=== PATIENT | female | born 1935 | race Caucasian/White ===

== ENCOUNTER 2023-01-31 19:10 | Observation (INO) ==
[2023-01-31 21:41] LABS: Alanine Aminotransferase 14 U/L (7-52); Albumin Globulin Ratio 1.6 (0.9-2); Albumin Level 4.9 gm/dl (3.4-5.0); Alkaline Phosphatase 87 U/L (34-104); Anion Gap 9 (3-11); Aspartate Aminotransferase 25 U/L (13-39); BUN Creatinine Ratio 16.8 (10-20); Bilirubin,Total 0.5 mg/dl (0.2-1.0); Blood Urea Nitrogen 19 mg/dl (6-23); Calcium 9.7 mg/dl (8.6-10.3); Carbon Dioxide 22 mmol/L (21-32); Chloride 101 mmol/L (98-107); Est GFR (African American) 51.3 ml/min; Est GFR (Non-African American) 44.3 ml/min; Glucose 124 mg/dl (70-99(Fasting)); Potassium 4.5 mmol/L (3.5-5.1); Sodium 132 mmol/L (136-145); Total Protein 7.9 gm/dl (6.0-8.3)
[2023-01-31 21:43] LABS: Hematocrit (blood only) 33.6 % (37.0-47.0); Hemoglobin 11.2 g/dl (12.0-16.0); Mean Corpuscular Hemoglobin 24.6 pg (25.0-34.0); Mean Corpuscular Hgb Conc 33.3 g/dL (32.0-36.0); Mean Corpuscular Volume 73.7 fL (80.0-100.0); Nucleated RBC # (auto) 0.06 K/uL (0.00-0.12); Nucleated RBC % (auto) 0.1 %; Platelet Count 332 K/uL (130-400); RDW Coefficient of Variation 18.5 % (11.5-14.5); RDW Standard Deviation 48.5 fL (36.4-46.3); Red Blood Count 4.56 M/uL (4.20-5.40); White Blood Count 40.49 K/ul (4.8-10.8)
[2023-01-31 21:56] LABS: INR 1.1 (0.9-1.1); Partial Thromboplastin Time 26.8 Seconds (21.0-31.0); Prothrombin Time 11.6 Seconds (9.0-12.0)
[2023-01-31 21:57] LABS: ALC (manual) 2.02 K/uL (1.2-3.4); ANC (manual) 30.37 K/uL (1.4-6.5); Basophils # (manual) 1.21 K/uL (0-0.2); Basophils % (manual) 3 %; Eosinophils # (manual) 2.02 K/uL (0-0.50); Eosinophils % (manual) 5 %; Hypersegmented Neutrophils 1+; Lymphocytes # (manual) 2.02 K/uL (1.2-3.4); Lymphocytes % (manual) 5 %; Monocytes # (manual) 1.62 K/uL (0.11-0.59); Monocytes % (manual) 4 %; Myelocytes # (manual) 3.24 K/uL (0-0); Myelocytes % (manual) 8 %; Neutrophils # (manual) 30.37 K/uL (1.40-6.50); Neutrophils % (manual) 75 %; Poikilocytosis Present; Polychromasia 1+
[2023-01-31 23:15] LABS: Appearance Urine Clear (Clear); Bacteria Urine Automated Negative (Negative); Bilirubin Urine Negative (Negative); Blood Urine Negative (Negative); Cast Urine Automated 0 /lpf (0-5); Color Urine Yellow; Epithelial Cell Urine Auto 0-5 /lpf (0-5); Glucose Urine UA Negative (Negative); Ketones Urine Negative (Negative); Leukocyte Esterase Urine Trace (Negative); Nitrite Urine Negative (Negative); Protein Urine Negative (Negative); RBC Urine Automated 0-4 /hpf (0-4); Specific Gravity Urine 1.013 (1.000-1.030); Urobilinogen Urine Negative (Negative); pH Urine 5.5 (4.5-7.5)
--- NOTE | 2023-02-01 02:00 | History & Physical Report ---
Date of Service February 01, 2023 Assessment & Plan (1) Dizziness: Plan: 87-year-old female with past med history significant for type 2 diabetes, hypothyroidism, dyslipidemia, diabetes with neurological manifestations, paroxysmal atrial fibrillation, hypertension, paroxysmal supraventricular tachycardia, history of nonischemic cardiomyopathy, history of varicose veins of legs with complication, chronic stomach ulcers, chronic kidney disease stage III, polymyalgia rheumatica, history of angioedema, statin intolerance, general anxiety disorder, non-ST load NM, who lives alone in senior apartments presents with ongoing dizziness and imbalance for last 2 weeks and progressively getting worse. Dizziness and imbalance We will follow CT head And CTA head and neck PT OT when stable If any concerns will consult neurology Leukocytosis WBC 40 K No obvious signs of infection We will consult heme-onc for further recommendations Follow repeat labs Diabetes Hold metformin Insulin sliding scale We will follow blood sugars and HbA1c levels Paroxysmal atrial fibrillation On aspirin and beta-dallin Not on anticoag secondary fall risk History of CAD On aspirin beta-dallin Hypertension On amlodipine, Atenolol, and losartan We will monitor Hypothyroidism Synthyroid Follow TSH levels CKD stage III Presented creatinine 1.1 We will follow labs DVT prophylaxis Lovenox Disposition Med/telemetry Full code History of Present Illness Chief Complaint: Dizziness and imbalance Primary Care Provider: Ayan Trinh MD 87-year-old female with past med history significant for type 2 diabetes, hypothyroidism, dyslipidemia, diabetes with neurological manifestations, paroxysmal atrial fibrillation, hypertension, paroxysmal supraventricular tachycardia, history of nonischemic cardiomyopathy, history of varicose veins of legs with complication, chronic stomach ulcers, chronic kidney disease stage III, polymyalgia rheumatica, history of angioedema, statin intolerance, general anxiety disorder, non-ST load NM, who lives alone in senior apartments presents with ongoing dizziness and imbalance for last 2 weeks and progressively getting worse. Patient is somewhat hard of hearing. Son is in the room who is helping with H&P. Patient denies any headaches. No blurred visions. No earaches. Has some runny nose. No sore throat. No cough. No difficulty swallowing. No fevers. No chest pain or shortness of breath. Has some dry heaves. No abdominal pain. Normal bowel and bladder movements. Currently resting comfortably and hemodynamically stable. Past medical history. As mentioned above Past surgical history. Bilateral carpal tunnel surgery. Colonoscopy. Cataract surgery. Tonsillectomy. Cholecystectomy. Total hysterectomy. Social history. Former smoker. Smoked 2.5 packs a day for 22 years. No alcohol use. No drug use. Family history. Father had renal cancer. Mother had breast cancer. Aunt had breast cancer. Allergies Allergy/AdvReac Type Severity Reaction Status Date / Time ibuprofen Allergy Intermediate tongue Verified 02/01/23 02:16 swelling latex Allergy Intermediate rash Verified 02/01/23 02:16 lisinopril Allergy Mild HIVES Verified 02/01/23 02:16 metoprolol Allergy Mild HIVES Verified 02/01/23 02:16 Penicillins Allergy Mild HIVES Verified 02/01/23 02:16 Sulfa (Sulfonamide Allergy Mild NAUSEA AND Verified 02/01/23 02:16 Antibiotics) VOMITING Home Medications Medication Instructions Recorded Confirmed Type amlodipine 5 mg tablet 5 mg PO DAILY 12/21/17 02/01/23 History aspirin 81 mg tablet,delayed 81 mg PO DAILY 12/21/17 02/01/23 History release (Rakesh Low Dose Aspirin) levothyroxine 75 mcg tablet 75 mcg PO DAILYBB 12/21/17 02/01/23 History lorazepam 0.5 mg tablet 0.5 mg PO TID 12/21/17 02/01/23 History losartan 25 mg tablet 25 mg PO DAILY 12/21/17 02/01/23 History metformin 500 mg tablet 500 mg PO BIDM 12/21/17 02/01/23 History atenolol 25 mg tablet 25 mg PO DAILY 01/06/18 02/01/23 History biotin 2,500 mcg capsule 2,500 mcg PO DAILY 01/06/18 02/01/23 History cholecalciferol (vitamin D3) 25 2,000 unit PO DAILY 01/06/18 02/01/23 History mcg (1,000 unit) tablet coenzyme Q10 50 mg capsule 50 mg PO DAILY 01/06/18 02/01/23 History cetirizine 10 mg tablet (Zyrtec) 5 mg PO DAILY 03/05/21 02/01/23 History fluticasone propionate 50 2 spray intranasal DAILY PRN 03/05/21 02/01/23 History mcg/actuation nasal Congestion spray,suspension pantoprazole 40 mg tablet,delayed 40 mg PO DAILY PRN Acid Reflux 03/05/21 02/01/23 History release acetaminophen 650 mg 1,300 mg PO DAILY PRN Pain 02/01/23 02/01/23 History tablet,extended release (Tylenol Arthritis Pain) 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) Vitamin D deficiency (11/11/11) Surgical History History of cardiac cath History of cholecystectomy History of total hip arthroplasty left History of total knee replacement right Family History Other No pertinent family history Social History Smoking Status: Never smoker Hx Alcohol Use: No Hx Substance Use: No Communication Ability: Effective Visual Impairment: No Limitations Hearing Ability: Normal 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 Head- atraumatic Eyes- PERRL. ENT- oropharynx clear Neck- supple, no JVD. Lungs- clear to auscultation no wheezing or crackles. Heart- regular rhythm; no murmur, no gallop. Abdomen- normal bowel sounds, soft, nontender, no distension. Extremities- no pretibial edema, no erythema seen. Neuro- alert, oriented x 3; PERRL, EOMI; no facial palsy; no dysarthria; motor 5/5 bilaterally;coordination of movements normal. No pronator drift. sensations intact. position sense intact. Skin- warm & dry Results & Data Results & Data Vital Signs (Past 12 Hours) Vital Signs Temp Pulse Pulse Resp BP BP Pulse Ox 02/01/23 00:35 66 19 195/76 H 97 01/31/23 23:05 66 19 97 01/31/23 23:05 01/31/23 19:28 36.6 C 65 18 160/79 H 98 O2 Del Method 02/01/23 00:35 01/31/23 23:05 01/31/23 23:05 Room Air 01/31/23 19:28 Room Air Diagnostic Findings Laboratory Results WBC 40.49 K/ul (4.8-10.8) H* 01/31/23 21:03 RBC 4.56 M/uL (4.20-5.40) 01/31/23 21:03 Hgb 11.2 g/dl (12.0-16.0) L 01/31/23 21:03 Hct 33.6 % (37.0-47.0) L 01/31/23 21:03 MCV 73.7 fL (80.0-100.0) L 01/31/23 21:03 MCH 24.6 pg (25.0-34.0) L 01/31/23 21:03 MCHC 33.3 g/dL (32.0-36.0) 01/31/23 21:03 RDW Std Deviation 48.5 fL (36.4-46.3) H 01/31/23 21:03 RDW Coeff of Nadia 18.5 % (11.5-14.5) H 01/31/23 21:03 Plt Count 332 K/uL (130-400) 01/31/23 21:03 Absolute Nucleated RBC 0.06 K/uL (0.00-0.12) 01/31/23 21:03 Nucleated RBC % (auto) 0.1 % 01/31/23 21:03 Neutrophils % (Manual) 75 % 01/31/23 21:03 Lymphocytes % (Manual) 5 % 01/31/23 21:03 Monocytes % (Manual) 4 % 01/31/23 21:03 Eosinophils % (Manual) 5 % 01/31/23 21:03 Basophils % (Manual) 3 % 01/31/23 21:03 Myelocytes % (Man) 8 % 01/31/23 21:03 Neutrophils # (Manual) 30.37 K/uL (1.40-6.50) H 01/31/23 21:03 Total Absolute Neuts 30.37 K/uL (1.4-6.5) H 10/26/23 21:03 Lymphocytes # (Manual) 2.02 K/uL (1.2-3.4) 01/31/23 21:03 Total Abs Lymphocytes 2.02 K/uL (1.2-3.4) 01/31/23 21:03 Monocytes # (Manual) 1.62 K/uL (0.11-0.59) H 01/31/23 21:03 Eosinophils # (Manual) 2.02 K/uL (0-0.50) H 01/31/23 21:03 Basophils # (Manual) 1.21 K/uL (0-0.2) H 01/31/23 21:03 Myelocytes # (Manual) 3.24 K/uL (0-0) H 01/31/23 21:03 Hypersegmented Neuts 1+ 01/31/23 21:03 Polychromasia 1+ 01/31/23 21:03 Poikilocytosis Present 01/31/23 21: PT 11.6 Seconds (9.0-12.0) 01/31/23 21:03 INR 1.1 (0.9-1.1) 01/31/23 21:03 APTT 26.8 Seconds (21.0-31.0) 01/31/23 21:03 PTT Ratio 1.0 01/31/23 21:03 Sodium 132 mmol/L (136-145) L 01/31/23 21: Potassium 4.5 mmol/L (3.5-5.1) 01/31/23 21: Chloride 101 mmol/L (98-107) 01/31/23 21:03 Carbon Dioxide 22 mmol/L (21-32) 01/31/23 21:03 Anion Gap 9 (3-11) 01/31/23 21:03 BUN 19 mg/dl (6-23) 01/31/23 21:03 Creatinine 1.13 mg/dl (0.6-1.2) 01/31/23 21:03 Est Cr Clr Drug Dosing Not Reportable 01/31/23 21:03 Est GFR ( Amer) 51.3 ml/min 01/31/23 21:03 Est GFR (Non-Af Amer) 44.3 ml/min 01/31/23 21:03 BUN/Creatinine Ratio 16.8 (10-20) 01/31/23 21:03 Glucose 124 mg/dl (70-99(Fasting)) H 01/31/23 21:03 Calcium 9.7 mg/dl (8.6-10.3) 01/31/23 21:03 Total Bilirubin 0.5 mg/dl (0.2-1.0) 01/31/23 21:03 AST 25 U/L (13-39) 01/31/23 21:03 ALT 14 U/L (7-52) 01/31/23 21:03 Alkaline Phosphatase 87 U/L (34-104) 01/31/23 21:03 Total Protein 7.9 gm/dl (6.0-8.3) 01/31/23 21:03 Albumin 4.9 gm/dl (3.4-5.0) 01/31/23 21:03 Globulin 3.0 gm/dl (2.5-4.0) 01/31/23 21:03 Albumin/Globulin Ratio 1.6 (0.9-2) 01/31/23 21:03 Urine Color Yellow 01/31/23 22:54 Urine Appearance Clear (Clear) 01/31/23 22:54 Urine pH 5.5 (4.5-7.5) 01/31/23 22:54 Ur Specific [place] 1.013 (1.000-1.030) 01/31/23 22:54 Urine Protein Negative (Negative) 01/31/23 22:54 Urine Glucose (UA) Negative (Negative) 01/31/23 22:54 Urine Ketones Negative (Negative) 01/31/23 22:54 Urine Blood Negative (Negative) 01/31/23 22:54 Urine Nitrite Negative (Negative) 01/31/23 22:54 Urine Bilirubin Negative (Negative) 01/31/23 22:54 Urine Urobilinogen Negative (Negative) 01/31/23 22:54 Ur Leukocyte Esterase Trace (Negative) H 01/31/23 22:54 Urine WBC (Auto) 1-5 /hpf (0-5) 01/31/23 22:54 Urine RBC (Auto) 0-4 /hpf (0-4) 01/31/23 22:54 U Hyaline Cast (Auto) 0 /lpf (0-5) 01/31/23 22:54 U Epithel Cells (Auto) 0-5 /lpf (0-5) 01/31/23 22:54 Urine Bacteria (Auto) Negative (Negative) 01/31/23 22:54 ECG Additional Comments: ECG. Normal sinus rhythm rate of 63. Left axis deviation. No significant change was found. Code Status & VTE Plan VTE Prophylaxis Plan VTE Prophylaxis will be ordered: Yes
[2023-02-01] MEDS ORDERED: SODIUM CHLORIDE 0.9% 1,000 ML IV SCH (04:14)
[2023-02-01] MEDS ORDERED: PANTOprazole 40 MG TAB PO PRN (04:14)
[2023-02-01] MEDS ORDERED: FLUTICASONE PROPIONATE NA SPR 16 GM BTL PRN (04:14)
[2023-02-01] MEDS ORDERED: ACETAMINOPHEN 325 MG TAB PO PRN (04:14)
[2023-02-01] MEDS ORDERED: GLUCOSE 40% GEL 15 GM TUBE PO PRN (04:14)
[2023-02-01] MEDS ORDERED: POLYETHYLENE (MIRALAX) 17 GM PACK PO PRN (04:14)
[2023-02-01] MEDS ORDERED: DEXTROSE 50% 50 ML SYRINGE IV PRN (04:14)
[2023-02-01] MEDS ORDERED: GLUCOSE 10 TAB/TUBE PO PRN (04:14)
[2023-02-01] MEDS ORDERED: GLUCAGON FOR INJ 1 MG VIAL SQ PRN (04:14)
[2023-02-01] MEDS ORDERED: NITROGLYCERIN SL 0.4 MG/TAB TAB SL PRN (04:14)
[2023-02-01] MEDS ORDERED: CARBOHYDRATES FOR HYPOGLYCEMIA PO PRN (04:14)
[2023-02-01] MEDS ORDERED: OPTIRAY 320 500ml IV ONE (05:18)
[2023-02-01] MEDS: LEVOTHYROXINE SODIUM 75 MCG TABLET PO SCH (06:18)
--- NOTE | 2023-02-01 06:29 | CT Scan Report ---
CT OF THE HEAD WITHOUT CONTRAST CLINICAL HISTORY: imbalance, dizzy COMPARISON STUDY: Head CT March 05, 2021. TECHNIQUE: Helical axial images of the head were obtained without IV contrast. Automated exposure con trol was utilized for the study. A dose lowering technique was utilized adhering to the principles o f ALARA. FINDINGS: No acute intracranial hemorrhage, midline shift or mass effect is present. The ventricular system is unremarkable. The basal cisterns are patent. No extra-axial collections are present. There are no findings to suggest acute dural sinus thrombosis or acute territorial infarct. No significant calvarial abnormalities are present. Visualized portions of the sinuses and mastoid air cells are yamila ar. IMPRESSION: No acute intracranial findings. ACT 112: Negative or not required by law. Electronically signed by: Bienvenido Miller M.D. 02/01/2023 6:27 AM
--- NOTE | 2023-02-01 06:35 | CT Scan Report ---
CT ANGIOGRAPHY OF THE NECK WITH CONTRAST CLINICAL HISTORY: dizziness, imbalance COMPARISON STUDY: Carotid ultrasound November 12, 2011. Technique: CT angiography of the carotid and vertebral arteries was obtained using Optiray and 3D rec onstruction on an independent workstation. NASCET criteria was utilized. Automated exposure control was utilized for the study. A dose lowering technique was utilized adhering to the principles of ALA RA. Findings: Visualized portions of the lung apices are unremarkable. There is no cervical lymphadenopat hy. No cervical spine fractures are present. There is moderate plaque within the proximal right inter nal carotid artery which results in mild stenosis. The vessel measures 3.3 mm at site of narrowing an d 4.3 mm distally. There is no stenosis within the left common carotid or cervical internal carotid a rteries. The left vertebral artery is dominant and patent. The right vertebral artery is somewhat dim inutive but patent. There is no dissection or aneurysm within the neck. CTA of the head will be repor mary separately. IMPRESSION: 1. Mild (30%) stenosis of the proximal right internal carotid artery. 2. No additional stenoses within the neck. Mild plaque within the vessels of the neck. ACT 112: Negative or not required by law. Electronically signed by: Bienvenido Miller M.D. 02/01/2023 6:32 AM
--- NOTE | 2023-02-01 06:37 | CT Scan Report ---
CTA ANGIOGRAPHY OF THE HEAD CLINICAL HISTORY: dizziness, imbalance COMPARISON STUDY: Head CT March 05, 2021. TECHNIQUE: Helical axial images of the head were obtained following uneventful intravenous administr ation of 93 cc of Optiray. Sagittal and coronal reconstructions were viewed as well as maximal intens ity projections on an independent 3-D workstation. Automated exposure control was utilized for the martin love. A dose lowering technique was utilized adhering to the principles of ALARA. CT DOSE: 974.3 mGy.cm FINDINGS: No acute intracranial hemorrhage was identified on the head CT which will be reported separ ately. The bilateral M1, M2, A1 and A2 segments are patent. There is no central vessel occlusion. The left vertebral artery is dominant. The posterior circulation is intact. There is no intracranial ane urysm. Major dural sinuses are patent. Ventricular system is stable. Basal cisterns are patent. There are no extra-axial collections. No calvarial fractures. IMPRESSION: No central vessel occlusion. No intracranial aneurysm. ACT 112: Negative or not required by law. Electronically signed by: Bienvenido Miller M.D. 02/01/2023 6:36 AM
[2023-02-01 07:42] LABS: BUN Creatinine Ratio 15.4 (10-20); Calcium 9.6 mg/dl (8.6-10.3); Creatinine Clr Calc Pharmacy 37.1 ml/min; Est GFR (African American) 56.7 ml/min; Magnesium 1.4 mg/dl (1.7-2.4); Potassium 3.9 mmol/L (3.5-5.1)
--- NOTE | 2023-02-01 07:44 | XRay Report ---
XR chest 1V not portable HISTORY: 87 years-old Female dizzy acute dizziness COMPARISON: 03/05/2021 TECHNIQUE: AP view of the chest FINDINGS: Cardiac silhouette is enlarged. Atherosclerosis of the aorta. No pneumothorax, pleural effusion or ai rspace consolidation. Bones appear grossly intact. IMPRESSION: No acute process. ACT 112: Negative or not required by law. The above report was generated using voice recognition software. It may contain grammatical, syntax o r spelling errors. Electronically signed by: Raymond Olmos M.D. 02/01/2023 7:42 AM
[2023-02-01 07:49] LABS: Hemoglobin 10.9 g/dl (12.0-16.0); Mean Corpuscular Hemoglobin 24.7 pg (25.0-34.0); Mean Corpuscular Hgb Conc 34.1 g/dL (32.0-36.0); Mean Corpuscular Volume 72.4 fL (80.0-100.0); Nucleated RBC # (auto) 0.07 K/uL (0.00-0.12); Nucleated RBC % (auto) 0.2 %; Platelet Count 302 K/uL (130-400); RDW Coefficient of Variation 18.3 % (11.5-14.5); Red Blood Count 4.42 M/uL (4.20-5.40); White Blood Count 33.97 K/ul (4.8-10.8)
[2023-02-01] MEDS: ASPIRIN 81 MG ECTAB PO SCH (08:41)
[2023-02-01] MEDS: CETIRIZINE HCL 10 MG TABLET PO SCH (08:41)
[2023-02-01] MEDS: ENOXAPARIN INJ 40 MG/0.4 ML SYR SQ SCH (08:41)
[2023-02-01] MEDS: LOSARTAN POTASSIUM 25 MG TAB PO SCH (08:41)
[2023-02-01] MEDS: amLODIPine BESYLATE 5 MG TAB PO SCH (08:41)
[2023-02-01] MEDS: ATENOLOL 25 MG TABLET PO SCH (08:41)
[2023-02-01] MEDS: CHOLECALCIFEROL 1,000 UNITS 25 MCG TAB PO SCH (08:41)
[2023-02-01] MEDS: LORazepam 0.5 MG TAB PO SCH ×3 (08:42→21:32)
[2023-02-01 08:52] LABS: ANC (manual) 22.76 K/uL (1.4-6.5); Basophils % (manual) 5 %; Blast # (manual) 0.68 K/uL (0-0); Blast Cells % (manual) 2 %; Eosinophils # (manual) 1.36 K/uL (0-0.50); Eosinophils % (manual) 4 %; Lymphocytes % (manual) 10 %; Metamyelocytes # (manual) 2.38 K/uL (0-0); Metamyelocytes % (manual) 7 %; Monocytes # (manual) 1.36 K/uL (0.11-0.59); Monocytes % (manual) 4 %; Myelocytes # (manual) 0.34 K/uL (0-0); Myelocytes % (manual) 1 %; Neutrophils # (manual) 22.76 K/uL (1.40-6.50); Neutrophils % (manual) 67 %; Ovalocytes 1+; Tear Drop Cells 1+
[2023-02-01 09:33] LABS: Estimated Average Glucose 166 mg/dl; Hemoglobin A1C 7.4 % (4.5-5.6)
[2023-02-01] MEDS: INSULIN ASPART PER UNIT CHARGE SC SCH ×4 (09:33→21:40)
[2023-02-01] MEDS: cefTRIAXone SODIUM 2,000 MG in DEXTROSE 5 % MINI-B 50 ML IV SCH (09:35)
[2023-02-01] MEDS ORDERED: ACETAMINOPHEN 1000 MG/100 ML IV IV ONE (14:03)
[2023-02-01] MEDS ORDERED: fentaNYL citrate PF 100 MCG/2 ML VIAL ONE (14:04)
--- NOTE | 2023-02-01 14:51 | CT Scan Report ---
CT-guided bone marrow biopsy INDICATION: Leukocytosis PROCEDURE: Procedure and risks were explained. Informed consent was obtained. A final timeout was com pleted. The patient was placed prone on the CT exam table. The left gluteal region was prepped and dr aped in sterile fashion. 1% buffered lidocaine was utilized for skin anesthesia. The patient received 1 g Tylenol IV. Utilizing CT guidance, an 11-gauge bone biopsy needle was advanced into the left iliac bone. Multiple aspirates were attempted however this was a dry tap. One bone core was then obtained and given to e lab. The needle was removed and Band-Aid applied. The patient tolerated the procedure well. Vital s igns will be monitored postprocedure. IMPRESSION: Bone marrow biopsy as above. Performed, dictated, and signed by Tom Gonzalez PA-C; to be co-signed by Dr. Raymond Olmos. Electronically signed by: Raymond Olmos M.D. 02/01/2023 3:13 PM
--- NOTE | 2023-02-01 15:04 | Hospitalist Progress Note ---
Date of Service February 01, 2023 Assessment & Plan (1) Dizziness: Plan: 87-year-old female with past med history significant for type 2 diabetes, hypothyroidism, dyslipidemia, diabetes with neurological manifestations, paroxysmal atrial fibrillation, hypertension, paroxysmal supraventricular tachycardia, history of nonischemic cardiomyopathy, history of varicose veins of legs with complication, chronic stomach ulcers, chronic kidney disease stage III, polymyalgia rheumatica, history of angioedema, statin intolerance, general anxiety disorder, non-ST load OK, who lives alone in senior apartments presents with ongoing dizziness and imbalance for last 2 weeks and progressively getting worse. Dizziness Rule out posterior stroke. Patient presents with 2 weeks of dizziness and imbalance CT head without contrast does not show any acute finding CTA head and neckno acute finding Obtain MRI brain without contrast to rule out stroke. PT OT eval Leukocytosis WBC 40 K on presentation Chart review shows leukocytosis with neutrophilia dating back to June 2021; was evaluated by hematology at that time. Peripheral blood smear was done; findings were more consistent with a leukemoid reaction with rare blast and rare nucleated RBC. Schistocytes since parasites are not seen. Discussed with hematology; recommended to obtain bone marrow biopsy. Will need outpatient follow-up with PCP and oncology. Type II diabetes Hold metformin Insulin sliding scale We will follow blood sugars and HbA1c levels Paroxysmal atrial fibrillation On aspirin and beta-dallin Not on anticoag secondary fall risk History of CAD On aspirin beta-dallin Hypertension On amlodipine, Atenolol, and losartan We will monitor Hypothyroidism Synthyroid Follow TSH levels CKD stage III Presented creatinine 1.1 We will follow labs DVT prophylaxis Lovenox Disposition Med/telemetry Full code Please note the above document was generated using voice recognition software. It may contain grammatical, syntax or spelling errors. Any formal questions or concerns about the content, text or information contained within the body of this dictation should be directly addressed to the provider for clarification Admission and Anticipated Discharge Date Admission Date: February 01, 2023 Subjective Patient seen and examined at bedside. She is sitting up on the bed comfortably. Denies dizziness. Review of Systems Review of Systems: All systems reviewed & are unremarkable except as noted in Subjective Physical Exam Physical Exam: Constitutional: WD/WN, vitals as above, NAD, sitting up in bed, pleasant, conversing easily Respiratory: normal respiratory effort, lungs clear to auscultation, no wheeze, rales, rhonchi. Normal insp/exp effort, no accessory muscle use Cardiovascular: RRR, no murmur, no edema Vessels: no JVD or carotid bruit Chest: normal inspection of chest Abdomen: normal bowel sounds, soft, nontender, no hepatosplenomegaly Musculoskeletal: no cyanosis or clubbing, extremities motor strength 5/5 Skin: no rashes, warm and dry normal turgor Neurologic: PERRL, EOMI, accommodation nl, no face palsy, no dysarthria CN's II- XI intact bilaterally and moves all extremities Psychiatric: A+Ox3, euthymic affect Results & Data Results & Data Vital Signs (Past 12 Hours) Vital Signs Temp Pulse Resp BP Pulse Ox Pulse Ox O2 Del Method 02/01/23 14:55 69 18 162/67 H 97 Room Air 02/01/23 14:40 62 20 145/64 H 97 Room Air 02/01/23 11:30 36.8 C 68 20 136/67 96 Room Air 02/01/23 11:30 96 02/01/23 05:50 76 20 175/93 H 95 Room Air 02/01/23 04:31 67 20 176/76 H 96 Room Air O2 Del Method 02/01/23 14:55 02/01/23 14:40 02/01/23 11:30 02/01/23 11:30 Room Air 02/01/23 05:50 02/01/23 04:31 Laboratory Results Laboratory Results WBC 33.97 K/ul (4.8-10.8) H* 02/01/23 07:03 RBC 4.42 M/uL (4.20-5.40) 02/01/23 07:03 Hgb 10.9 g/dl (12.0-16.0) L 02/01/23 07:03 Hct 32.0 % (37.0-47.0) L 02/01/23 07:03 MCV 72.4 fL (80.0-100.0) L 02/01/23 07:03 MCH 24.7 pg (25.0-34.0) L 02/01/23 07:03 MCHC 34.1 g/dL (32.0-36.0) 02/01/23 07:03 RDW Std Deviation 47.0 fL (36.4-46.3) H 02/01/23 07:03 RDW Coeff of Nadia 18.3 % (11.5-14.5) H 02/01/23 07:03 Plt Count 302 K/uL (130-400) 02/01/23 07:03 Absolute Nucleated RBC 0.07 K/uL (0.00-0.12) 02/01/23 07:03 Nucleated RBC % (auto) 0.2 % 02/01/23 07:03 Neutrophils % (Manual) 67 % 02/01/23 07:03 Lymphocytes % (Manual) 10 % 02/01/23 07:03 Monocytes % (Manual) 4 % 02/01/23 07:03 Eosinophils % (Manual) 4 % 02/01/23 07:03 Basophils % (Manual) 5 % 02/01/23 07:03 Metamyelocytes % (Man) 7 % 02/01/23 07:03 Myelocytes % (Man) 1 % 02/01/23 07:03 Blast Cells % (Manual) 2 % 02/01/23 07:03 Neutrophils # (Manual) 22.76 K/uL (1.40-6.50) H 02/01/23 07:03 Total Absolute Neuts 22.76 K/uL (1.4-6.5) H 02/01/23 07:03 Lymphocytes # (Manual) 3.40 K/uL (1.2-3.4) 02/01/23 07:03 Total Abs Lymphocytes 3.40 K/uL (1.2-3.4) 02/01/23 07:03 Monocytes # (Manual) 1.36 K/uL (0.11-0.59) H 02/01/23 07:03 Eosinophils # (Manual) 1.36 K/uL (0-0.50) H 02/01/23 07:03 Basophils # (Manual) 1.70 K/uL (0-0.2) H 02/01/23 07:03 Metamyelocytes # (Man) 2.38 K/uL (0-0) H 02/01/23 07:03 Myelocytes # (Manual) 0.34 K/uL (0-0) H 02/01/23 07:03 Blast Cells # (Man) 0.68 K/uL (0-0) H 02/01/23 07:03 Hypersegmented Neuts 1+ 01/31/23 21:03 Polychromasia 1+ 01/31/23 21:03 Poikilocytosis Present 01/31/23 21:03 Tear Drop Cells 1+ 02/01/23 07:03 Ovalocytes 1+ 02/01/23 07:03 Peripher Smr Path Cons 02/01/23 07:03 ESR 21 mm/hr (0-30) 02/01/23 07:03 PT 11.6 Seconds (9.0-12.0) 01/31/23 21:03 INR 1.1 (0.9-1.1) 01/31/23 21:03 APTT 26.8 Seconds (21.0-31.0) 01/31/23 21:03 PTT Ratio 1.0 01/31/23 21:03 Sodium 134 mmol/L (136-145) L 02/01/23 07:03 Potassium 3.9 mmol/L (3.5-5.1) 02/01/23 07:03 Chloride 102 mmol/L (98-107) 02/01/23 07:03 Carbon Dioxide 24 mmol/L (21-32) 02/01/23 07:03 Anion Gap 8 (3-11) 02/01/23 07:03 BUN 16 mg/dl (6-23) 02/01/23 07:03 Creatinine 1.04 mg/dl (0.6-1.2) 02/01/23 07:03 Est Cr Clr Drug Dosing 37.1 ml/min 02/01/23 07:03 Est GFR ( Amer) 56.7 ml/min 02/01/23 07:03 Est GFR (Non-Af Amer) 49.0 ml/min 02/01/23 07:03 BUN/Creatinine Ratio 15.4 (10-20) 02/01/23 07:03 Glucose 146 mg/dl (70-99(Fasting)) H 02/01/23 07:03 POC Glucose 111 mg/dl (70-99) H 02/01/23 11:34 Estimat Average Glucose 166 mg/dl 02/01/23 07:03 Hemoglobin A1c 7.4 % (4.5-5.6) H 02/01/23 07:03 Calcium 9.6 mg/dl (8.6-10.3) 02/01/23 07:03 Magnesium 1.4 mg/dl (1.7-2.4) L 02/01/23 07:03 Total Bilirubin 0.5 mg/dl (0.2-1.0) 01/31/23 21:03 AST 25 U/L (13-39) 01/31/23 21:03 ALT 14 U/L (7-52) 01/31/23 21:03 Alkaline Phosphatase 87 U/L (34-104) 01/31/23 21:03 C-Reactive Protein < 0.50 mg/dl (0-0.5) 02/01/23 09:04 Total Protein 7.9 gm/dl (6.0-8.3) 01/31/23 21:03 Albumin 4.9 gm/dl (3.4-5.0) 01/31/23 21:03 Globulin 3.0 gm/dl (2.5-4.0) 01/31/23 21:03 Albumin/Globulin Ratio 1.6 (0.9-2) 01/31/23 21:03 Vitamin B12 1065 pg/ml (180-914) H 02/01/23 07:03 Urine Color Yellow 01/31/23 22:54 Urine Appearance Clear (Clear) 01/31/23 22:54 Urine pH 5.5 (4.5-7.5) 01/31/23 22:54 Ur Specific Codorus 1.013 (1.000-1.030) 01/31/23 22:54 Urine Protein Negative (Negative) 01/31/23 22:54 Urine Glucose (UA) Negative (Negative) 01/31/23 22:54 Urine Ketones Negative (Negative) 01/31/23 22:54 Urine Blood Negative (Negative) 01/31/23 22:54 Urine Nitrite Negative (Negative) 01/31/23 22:54 Urine Bilirubin Negative (Negative) 01/31/23 22:54 Urine Urobilinogen Negative (Negative) 01/31/23 22:54 Ur Leukocyte Esterase Trace (Negative) H 01/31/23 22:54 Urine WBC (Auto) 1-5 /hpf (0-5) 01/31/23 22:54 Urine RBC (Auto) 0-4 /hpf (0-4) 01/31/23 22:54 U Hyaline Cast (Auto) 0 /lpf (0-5) 01/31/23 22:54 U Epithel Cells (Auto) 0-5 /lpf (0-5) 01/31/23 22:54 Urine Bacteria (Auto) Negative (Negative) 01/31/23 22:54 Impressions Chest X-Ray 01/31/23 19:32 XR chest 1V not portable HISTORY: 87 years-old Female dizzy acute dizziness COMPARISON: 03/05/2021 TECHNIQUE: AP view of the chest FINDINGS: Cardiac silhouette is enlarged. Atherosclerosis of the aorta. No pneumothorax, pleural effusion or airspace consolidation. Bones appear grossly intact. IMPRESSION: No acute process. ACT 112: Negative or not required by law. The above report was generated using voice recognition software. It may contain grammatical, syntax or spelling errors. Electronically signed by: Raymond Olmos M.D. 02/01/2023 7:[address] 02/01/23 04:14 CT OF THE HEAD WITHOUT CONTRAST CLINICAL HISTORY: imbalance, dizzy COMPARISON STUDY: Head CT March 05, 2021. TECHNIQUE: Helical axial images of the head were obtained without IV contrast. Automated exposure control was utilized for the study. A dose lowering technique was utilized adhering to the principles of ALARA. FINDINGS: No acute intracranial hemorrhage, midline shift or mass effect is present. The ventricular system is unremarkable. The basal cisterns are patent. No extra-axial collections are present. There are no findings to suggest acute dural sinus thrombosis or acute territorial infarct. No significant calvarial abnormalities are present. Visualized portions of the sinuses and mastoid air cells are clear. IMPRESSION: No acute intracranial findings. ACT 112: Negative or not required by law. Electronically signed by: Bienvenido Miller M.D. 02/01/2023 6:27 AM Head CTA 02/01/23 04:14 CTA ANGIOGRAPHY OF THE HEAD CLINICAL HISTORY: dizziness, imbalance COMPARISON STUDY: Head CT March 05, 2021. TECHNIQUE: Helical axial images of the head were obtained following uneventful intravenous administration of 93 cc of Optiray. Sagittal and coronal reconstructions were viewed as well as maximal intensity projections on an independent 3-D workstation. Automated exposure control was utilized for the study. A dose lowering technique was utilized adhering to the principles of ALARA. CT DOSE: 974.3 mGy.cm FINDINGS: No acute intracranial hemorrhage was identified on the head CT which will be reported separately. The bilateral M1, M2, A1 and A2 segments are patent. There is no central vessel occlusion. The left vertebral artery is dominant. The posterior circulation is intact. There is no intracranial aneurysm. Major dural sinuses are patent. Ventricular system is stable. Basal cisterns are patent. There are no extra-axial collections. No calvarial fractures. IMPRESSION: No central vessel occlusion. No intracranial aneurysm. ACT 112: Negative or not required by law. Electronically signed by: Bienvenido Miller M.D. 02/01/2023 6:36 AM Neck CTA 02/01/23 04:14 CT ANGIOGRAPHY OF THE NECK WITH CONTRAST CLINICAL HISTORY: dizziness, imbalance COMPARISON STUDY: Carotid ultrasound November 12, 2011. Technique: CT angiography of the carotid and vertebral arteries was obtained using Optiray and 3D reconstruction on an independent workstation. NASCET criteria was utilized. Automated exposure control was utilized for the study. A dose lowering technique was utilized adhering to the principles of ALARA. Findings: Visualized portions of the lung apices are unremarkable. There is no cervical lymphadenopathy. No cervical spine fractures are present. There is moderate plaque within the proximal right internal carotid artery which results in mild stenosis. The vessel measures 3.3 mm at site of narrowing and 4.3 mm distally. There is no stenosis within the left common carotid or cervical internal carotid arteries. The left vertebral artery is dominant and patent. The right vertebral artery is somewhat diminutive but patent. There is no dissection or aneurysm within the neck. CTA of the head will be reported separately. IMPRESSION: 1. Mild (30%) stenosis of the proximal right internal carotid artery. 2. No additional stenoses within the neck. Mild plaque within the vessels of the neck. ACT 112: Negative or not required by law. Electronically signed by: Bienvenido Miller M.D. 02/01/2023 6:32 AM Bone Marrow Biopsy w/ CT 02/01/23 13:38 CT-guided bone marrow biopsy INDICATION: Leukocytosis PROCEDURE: Procedure and risks were explained. Informed consent was obtained. A final timeout was completed. The patient was placed prone on the CT exam table. The left gluteal region was prepped and draped in sterile fashion. 1% buffered lidocaine was utilized for skin anesthesia. The patient received 1 g Tylenol IV. Utilizing CT guidance, an 11-gauge bone biopsy needle was advanced into the left iliac bone. Multiple aspirates were attempted however this was a dry tap. One bone core was then obtained and given to the lab. The needle was removed and Band-Aid applied. The patient tolerated the procedure well. Vital signs will be monitored postprocedure. IMPRESSION: Bone marrow biopsy as above. Performed, dictated, and signed by Tom Gonzalez PA-C; to be co-signed by Dr. Raymond Olmos.
[2023-02-01] MEDS ORDERED: ALPRAZolam 0.5 MG TABLET PO ONE (15:45)
--- NOTE | 2023-02-01 17:10 | Oncology Consultation ---
Date of Consultation February 02, 2023 Assessment & Plan (1) Leukocytosis: Plan Severe leukocytosis with rare circulation blasts. At this time we are waiting for the results of the work up performed till date. She has a pending results of a bone marrow biopsy. Once results are available we will have a recommendation for the patient. Differentatial diagnosis include CML vs MPN/MDS vs AML vs leukamoid reaction. Thank you for this hematology consult. We will continue to follow the patient closely and make appropriate recommendations as needed. History of Present Illness Reason for Consultation: Unexplained leukocytosis Blasts in peripheral blood Basophilia Requesting Physician: Jass Polo MD Attending Physician: Jass Polo MD History of Present Illness Patient with a past medical history of obesity, htn, hypothyroidism who presented with complaints of weakness, lightheadedness and vision loss to the ER. Was found to have an elevated WBC count at 40,000/ul and was reported to have circulating blasts in the peripheral blood. Hematology has been consulted to assist in management of this patient with significant unexplained leukocytosis. The patient denies any unexplained fever, chills, night sweats, growing lumps, rashes, changes in appetite. No easy bruising or bleeding. Allergies Allergy/AdvReac Type Severity Reaction Status Date / Time ibuprofen Allergy Intermediate tongue Verified 02/01/23 02:16 swelling latex Allergy Intermediate rash Verified 02/01/23 02:16 lisinopril Allergy Mild HIVES Verified 02/01/23 02:16 metoprolol Allergy Mild HIVES Verified 02/01/23 02:16 Penicillins Allergy Mild HIVES Verified 02/01/23 02:16 Sulfa (Sulfonamide Allergy Mild NAUSEA AND Verified 02/01/23 02:16 Antibiotics) VOMITING Home Medications Medication Instructions Recorded Confirmed Type amlodipine 5 mg tablet 5 mg PO DAILY 12/21/17 02/01/23 History aspirin 81 mg tablet,delayed 81 mg PO DAILY 12/21/17 02/01/23 History release (Rakesh Low Dose Aspirin) levothyroxine 75 mcg tablet 75 mcg PO DAILYBB 12/21/17 02/01/23 History lorazepam 0.5 mg tablet 0.5 mg PO TID 12/21/17 02/01/23 History losartan 25 mg tablet 25 mg PO DAILY 12/21/17 02/01/23 History metformin 500 mg tablet 500 mg PO BIDM 12/21/17 02/01/23 History atenolol 25 mg tablet 25 mg PO DAILY 01/06/18 02/01/23 History biotin 2,500 mcg capsule 2,500 mcg PO DAILY 01/06/18 02/01/23 History cholecalciferol (vitamin D3) 25 2,000 unit PO DAILY 01/06/18 02/01/23 History mcg (1,000 unit) tablet coenzyme Q10 50 mg capsule 50 mg PO DAILY 01/06/18 02/01/23 History cetirizine 10 mg tablet (Zyrtec) 5 mg PO DAILY 03/05/21 02/01/23 History fluticasone propionate 50 2 spray intranasal DAILY PRN 03/05/21 02/01/23 History mcg/actuation nasal Congestion spray,suspension pantoprazole 40 mg tablet,delayed 40 mg PO DAILY PRN Acid Reflux 03/05/21 02/01/23 History release acetaminophen 650 mg 1,300 mg PO DAILY PRN Pain 02/01/23 02/01/23 History tablet,extended release (Tylenol Arthritis Pain) Patient History Medical History Anxiety Carpal tunnel syndrome (11/11/11) Colonoscopic polypectomy (11/11/11) Diabetes Diabetes mellitus, type 2 History of tonsillectomy (11/11/11) History of total hysterectomy (11/11/11) Hyperlipidemia Hypertension Hypothyroidism Recent myocardial infarction 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) Vitamin D deficiency (11/11/11) Surgical History History of cardiac cath History of cholecystectomy History of total hip arthroplasty left History of total knee replacement right Family History Other No pertinent family history Social History Smoking Status: Never smoker Hx Alcohol Use: No Hx Substance Use: No Communication Ability: Effective Visual Impairment: No Limitations Hearing Ability: Normal 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 Complained of weakness, fatigue. Physical Exam Constitutional: well developed, well nourished and + obese Eyes: PERRL, conjunctivae normal, anicteric sclerae ENMT: external ear and nose normal, oropharynx normal Neck: trachea midline, no thyromegaly Respiratory: normal respiratory effort, lungs clear to auscultation Cardiovascular: RRR, no murmur, no edema Gastrointestinal (Abdomen): normal bowel sounds, soft, nontender, no hepatosplenomegaly Musculoskeletal: no cyanosis or clubbing, extremities motor strength 5/5 Skin: no rashes, warm and dry Genitourinary: no vaginal lesions, no adnexal mass Results & Data Vital Signs (Past 12 Hours) Vital Signs Temp Pulse Resp BP Pulse Ox Pulse Ox O2 Del Method 02/01/23 16:25 69 20 186/78 H 96 Room Air 02/01/23 15:55 69 18 164/73 H 97 Room Air 02/01/23 15:25 68 18 171/80 H 97 Room Air 02/01/23 14:55 69 18 162/67 H 97 Room Air 02/01/23 14:40 62 20 145/64 H 97 Room Air 02/01/23 11:30 36.8 C 68 20 136/67 96 Room Air 02/01/23 11:30 96 02/01/23 05:50 76 20 175/93 H 95 Room Air O2 Del Method 02/01/23 16:25 02/01/23 15:55 02/01/23 15:25 02/01/23 14:55 02/01/23 14:40 02/01/23 11:30 02/01/23 11:30 Room Air 02/01/23 05:50
--- NOTE | 2023-02-01 19:17 | Magnetic Resonance Report ---
MR brain wo con CLINICAL HISTORY: Rule out posterior stroke, c/o dizziness TECHNIQUE: Multiplanar and multisequence MR images of the brain were obtained without intravenous con trast. Comparison: Comparison is made to CT head 02/01/2023 FINDINGS: No abnormal restricted diffusion is identified. Foci of T2 and FLAIR hyperintensity are noted in the paraventricular areas consistent with chronic small vessel ischemic disease. Ex vacuo ventriculomegal y and sulcal enlargement is noted compatible with diffuse volume loss. 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 No mass is seen. There is no mass effect or midline shift. There is no eviden ce of acute intraparenchymal hemorrhage. No extra axial fluid collections are seen. The corpus callos um, pituitary gland, and cerebellar tonsils appear grossly unremarkable. Flow voids of the major intracranial arterial vessels are identified. The imaged portions of the para nasal sinuses, mastoid air cells, and orbits are unremarkable. IMPRESSION: No acute abnormality and in particular no evidence of acute infarct. ACT 112: Negative or not required by law. Electronically signed by: Wood Valle M.D. 02/01/2023 7:15 PM
--- NOTE | 2023-02-01 21:43 | Electrocardiogram Report ---
Test Reason : Blood Pressure : / mmHG Vent. Rate : 063 BPM Atrial Rate : 063 BPM P-R Int : 182 ms QRS Dur : 086 ms QT Int : 418 ms P-R-T Axes : 000 -35 049 degrees QTc Int : 427 ms Normal sinus rhythm Left axis deviation Minimal voltage criteria for LVH, may be normal variant ( Crescencio product ) Poor R wave progression, consider anterior AK vs. lead placement vs. LVH Abnormal ECG When compared with ECG of 05-MAR-2021 23:05, No significant change was found Confirmed by Paul Inman ([id number]) on 02/01/2023 9:43:39 PM Referred By: REFERRED SELF Confirmed By:Paul Inman
--- NOTE | 2023-02-02 06:13 | Emergency Department Note ---
Impression & Plan Leukocytosis, Dizziness, Weakness admit to the [facility] ED Provider Note NAME: JANEE VALENTE AGE: 87 SEX: Female INFORMANT: Patient ED PROVIDER(S): Marquita Evrin DO CHIEF COMPLAINT: Right eye pain and lightheadedness PLAN: Disposition: Admit to the [facility] MEDICAL DECISION MAKING: This is an 87-year-old female patient who presents to the emergency department w ith right eye pain, weakness and lightheadedness. The patient has been suffering from right eye pain for some time. She has followed up scheduled at [facility] in 5 days. Before bed tonight she noted that her weakness and lightheadedness seem to have worsened. Overall, the patient describes a general decline in her health. Laboratory studies reveal a significant leukocytosis of greater than 40,000. I reviewed laboratory studies in [facility]. The last white blood cell count done was in 2020 which was 10,000. Other laboratory values here tonight she has a mild anemia with a hemoglobin of 11.2. Sodium was 132. Glucose of 124. Urinalysis was unremarkable. On physical exam, the patient is generally weak. There were no focal findings to suggest a stroke. I did examine the patient's right eye. She does have a lesion on the right eyelid but it appears to be chronic. [facility] will evaluate for further inpatient care and he matology evaluation. Care/management discussed with: [facility] Level of care consideration(s): After review of the information above and other included data, I feel the patient requires escalation of care to admission.] Triage Nursing notes: [reviewed and agree with them. Vital Signs: reviewed and unremarkable Additional History obtained from: The son who is at the bedside Chronic Medical/Social Conditions affecting care: none Prior/ Outside/ External records reviewed: [facility] notes from her primary care doctor Differential Diagnosis: UTI, dehydration, anemia, leukemia, vertigo Diagnostics, independently interpreted by me: ECG: Normal sinus rhythm at a rate of [address] segment elevation or signs of ischemia QTc is 427 ms Cardiac Monitoring: Normal sinus rhythm at a rate of 72 Imaging studies: Chest x-ray-no cardiomegaly; no pulmonary infiltrates or opacities as per my independent interpretation HPI: 87 year old Female arrives for evaluation of right eye pain and worsening balance. Patient states that she was getting ready for bed tonight when she developed right eye pain and worsening balance. She has been having issues with the right eye for 2 weeks for which she has been followed by her eye doctor and putting eyedrops in that eye but notes that it has not been improving. She has a follow-up appointment with a specialist in [place] on Saturday. Overall, however she feels increasing generalized weakness and lightheadedness. She is becoming very concerned about her health. PAST MEDICAL HISTORY: See Below, PAST SURGICAL HISTORY: See Below, SOCIAL HISTORY: See Below, HOME MEDICATIONS: See list ALLERGIES: See list VITALS: See Below PHYSICAL EXAMINATION: HEENT: Head - normocephalic and atraumatic. Pupils are equal, round, and reactive to light. Extraocular eye muscles are intact and sclera are anicteric. Nose - moist nasal mucosa without discharge. Mouth - moist buccal mucosa. Oropharynx is nonerythematous and there is no tonsillar exudate or edema noted. Neck: Supple; no JVD or cervical lymphadenopathy Heart: Regular rate and rhythm. There is a normal S1 and S2 with no murmurs, clicks, or gallops appreciated. Lungs: Clear to auscultation bilaterally with no wheezes, rales, or rhonchi. Abdomen: Soft, completely nontender, nondistended, with good bowel sounds. Th ere are no palpable pulsatile masses or hepatosplenomegaly. There is no guarding, rigidity, or rebound noted. Extremities: No evidence of cyanosis, clubbing, or edema. There are easily palpable peripheral pulses. Neuro:The patient is awake and alert, oriented to day, time, and place. Muscle strength is 5/5 in all 4 extremities. The patient has equal premium card cancellation clerk strength and equal pedal push and pull. There are no cerebellar signs. Emergency department course: The patient was evaluated in room A2. A complete history and physical was performed. An order was placed for continuous cardiac monitoring. The patient was in a normal sinus rhythm at a rate of 72. A twelv e-lead EKG was obtained as described above. I did obtain labs from the [employer] system. I reviewed this with the family. A urine specimen was obtained. I discussed the case with the [facility]. 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) Vitamin D deficiency (11/11/11) Surgical History History of cardiac cath History of cholecystectomy History of total hip arthroplasty left History of total knee replacement right Family History Other No pertinent family history Social History Smoking Status: Never smoker Hx Alcohol Use: No Hx Substance Use: No Communication Ability: Effective Visual Impairment: No Limitations Hearing Ability: Normal Mechanical Integrity Specialist Required: No Beliefs That Will Affect Care: None Current Living Situation: Alone current occupation: Retired Feels Safe at Home: Yes Assistive Devices: Denture - Upper, Denture - Lower and Glasses Allergies Allergies Allergy/AdvReac Type Severity Reaction Status Date / Time ibuprofen Allergy Intermediate tongue Verified 02/01/23 02:16 swelling latex Allergy Intermediate rash Verified 02/01/23 02:16 lisinopril Allergy Mild HIVES Verified 02/01/23 02:16 metoprolol Allergy Mild HIVES Verified 02/01/23 02:16 Penicillins Allergy Mild HIVES Verified 02/01/23 02:16 Sulfa (Sulfonamide Allergy Mild NAUSEA AND Verified 02/01/23 02:16 Antibiotics) VOMITING Home Meds Home Medications Medication Instructions Recorded Confirmed amlodipine 5 mg tablet 5 mg PO DAILY 12/21/17 02/01/23 aspirin 81 mg tablet,delayed 81 mg PO DAILY 12/21/17 02/01/23 release (Rakesh Low Dose Aspirin) levothyroxine 75 mcg tablet 75 mcg PO DAILYBB 12/21/17 02/01/23 lorazepam 0.5 mg tablet 0.5 mg PO TID 12/21/17 02/01/23 losartan 25 mg tablet 25 mg PO DAILY 12/21/17 02/01/23 metformin 500 mg tablet 500 mg PO BIDM 12/21/17 02/01/23 atenolol 25 mg tablet 25 mg PO DAILY 01/06/18 02/01/23 biotin 2,500 mcg capsule 2,500 mcg PO DAILY 01/06/18 02/01/23 cholecalciferol (vitamin D3) 25 2,000 unit PO DAILY 01/06/18 02/01/23 mcg (1,000 unit) tablet coenzyme Q10 50 mg capsule 50 mg PO DAILY 01/06/18 02/01/23 cetirizine 10 mg tablet (Zyrtec) 5 mg PO DAILY 03/05/21 02/01/23 fluticasone propionate 50 2 spray intranasal DAILY PRN 03/05/21 02/01/23 mcg/actuation nasal Congestion spray,suspension pantoprazole 40 mg tablet,delayed 40 mg PO DAILY PRN Acid Reflux 03/05/21 02/01/23 release acetaminophen 650 mg 1,300 mg PO DAILY PRN Pain 02/01/23 02/01/23 tablet,extended release (Tylenol Arthritis Pain) Results & Data (ED) Laboratory Data 02/01/23 07:03 02/01/23 07:03 Lab Results 01/31/23 01/31/23 01/31/23 Range/Units 21:03 21:03 21:03 WBC 40.49 H* (4.8-10.8) K/ul RBC 4.56 (4.20-5.40) M/uL Hgb 11.2 L (12.0-16.0) g/dl Hct 33.6 L (37.0-47.0) % MCV 73.7 L (80.0-100.0) fL MCH 24.6 L (25.0-34.0) pg MCHC 33.3 (32.0-36.0) g/dL RDW Std Deviation 48.5 H (36.4-46.3) fL RDW Coeff of Nadia 18.5 H (11.5-14.5) % Plt Count 332 (130-400) K/uL Absolute Nucleated RBC 0.06 (0.00-0.12) K/uL Nucleated RBC % (auto) 0.1 % Neutrophils % (Manual) 75 % Lymphocytes % (Manual) 5 % Monocytes % (Manual) 4 % Eosinophils % (Manual) 5 % Basophils % (Manual) 3 % Myelocytes % (Man) 8 % Neutrophils # (Manual) 30.37 H (1.40-6.50) K/uL Total Absolute Neuts 30.37 H (1.4-6.5) K/uL Lymphocytes # (Manual) 2.02 (1.2-3.4) K/uL Total Abs Lymphocytes 2.02 (1.2-3.4) K/uL Monocytes # (Manual) 1.62 H (0.11-0.59) K/uL Eosinophils # (Manual) 2.02 H (0-0.50) K/uL Basophils # (Manual) 1.21 H (0-0.2) K/uL Myelocytes # (Manual) 3.24 H (0-0) K/uL Hypersegmented Neuts 1+ Polychromasia 1+ Poikilocytosis Present PT 11.6 (9.0-12.0) Seconds INR 1.1 (0.9-1.1) APTT 26.8 (21.0-31.0) Seconds PTT Ratio 1.0 Sodium 132 L (136-145) mmol/L Potassium 4.5 (3.5-5.1) mmol/L Chloride 101 (98-107) mmol/L Carbon Dioxide 22 (21-32) mmol/L Anion Gap 9 (3-11) BUN 19 (6-23) mg/dl Creatinine 1.13 (0.6-1.2) mg/dl Est Cr Clr Drug Dosing Not Reportable Est GFR ( Amer) 51.3 ml/min Est GFR (Non-Af Amer) 44.3 ml/min BUN/Creatinine Ratio 16.8 (10-20) Glucose 124 H (70-99(Fasting)) mg/dl Calcium 9.7 (8.6-10.3) mg/dl Total Bilirubin 0.5 (0.2-1.0) mg/dl AST 25 (13-39) U/L ALT 14 (7-52) U/L Alkaline Phosphatase 87 (34-104) U/L Total Protein 7.9 (6.0-8.3) gm/dl Albumin 4.9 (3.4-5.0) gm/dl Globulin 3.0 (2.5-4.0) gm/dl Albumin/Globulin Ratio 1.6 (0.9-2) Urine Color Urine Appearance (Clear) Urine pH (4.5-7.5) Ur Specific [place] (1.000-1.030) Urine Protein (Negative) Urine Glucose (UA) (Negative) Urine Ketones (Negative) Urine Blood (Negative) Urine Nitrite (Negative) Urine Bilirubin (Negative) Urine Urobilinogen (Negative) Ur Leukocyte Esterase (Negative) Urine WBC (Auto) (0-5) /hpf Urine RBC (Auto) (0-4) /hpf U Hyaline Cast (Auto) (0-5) /lpf U Epithel Cells (Auto) (0-5) /lpf Urine Bacteria (Auto) (Negative) 01/31/23 Range/Units 22:54 WBC (4.8-10.8) K/ul RBC (4.20-5.40) M/uL Hgb (12.0-16.0) g/dl Hct (37.0-47.0) % MCV (80.0-100.0) fL MCH (25.0-34.0) pg MCHC (32.0-36.0) g/dL RDW Std Deviation (36.4-46.3) fL RDW Coeff of Nadia (11.5-14.5) % Plt Count (130-400) K/uL Absolute Nucleated RBC (0.00-0.12) K/uL Nucleated RBC % (auto) % Neutrophils % (Manual) % Lymphocytes % (Manual) % Monocytes % (Manual) % Eosinophils % (Manual) % Basophils % (Manual) % Myelocytes % (Man) % Neutrophils # (Manual) (1.40-6.50) K/uL Total Absolute Neuts (1.4-6.5) K/uL Lymphocytes # (Manual) (1.2-3.4) K/uL Total Abs Lymphocytes (1.2-3.4) K/uL Monocytes # (Manual) (0.11-0.59) K/uL Eosinophils # (Manual) (0-0.50) K/uL Basophils # (Manual) (0-0.2) K/uL Myelocytes # (Manual) (0-0) K/uL Hypersegmented Neuts Polychromasia Poikilocytosis PT (9.0-12.0) Seconds INR (0.9-1.1) APTT (21.0-31.0) Seconds PTT Ratio Sodium (136-145) mmol/L Potassium (3.5-5.1) mmol/L Chloride (98-107) mmol/L Carbon Dioxide (21-32) mmol/L Anion Gap (3-11) BUN (6-23) mg/dl Creatinine (0.6-1.2) mg/dl Est Cr Clr Drug Dosing Est GFR ( Amer) ml/min Est GFR (Non-Af Amer) ml/min BUN/Creatinine Ratio (10-20) Glucose (70-99(Fasting)) mg/dl Calcium (8.6-10.3) mg/dl Total Bilirubin (0.2-1.0) mg/dl AST (13-39) U/L ALT (7-52) U/L Alkaline Phosphatase (34-104) U/L Total Protein (6.0-8.3) gm/dl Albumin (3.4-5.0) gm/dl Globulin (2.5-4.0) gm/dl Albumin/Globulin Ratio (0.9-2) Urine Color Yellow Urine Appearance Clear (Clear) Urine pH 5.5 (4.5-7.5) Ur Specific [place] 1.013 (1.000-1.030) Urine Protein Negative (Negative) Urine Glucose (UA) Negative (Negative) Urine Ketones Negative (Negative) Urine Blood Negative (Negative) Urine Nitrite Negative (Negative) Urine Bilirubin Negative (Negative) Urine Urobilinogen Negative (Negative) Ur Leukocyte Esterase Trace H (Negative) Urine WBC (Auto) 1-5 (0-5) /hpf Urine RBC (Auto) 0-4 (0-4) /hpf U Hyaline Cast (Auto) 0 (0-5) /lpf U Epithel Cells (Auto) 0-5 (0-5) /lpf Urine Bacteria (Auto) Negative (Negative) Administered Medications Amlodipine Besylate (Amlodipine Besylate 5 Mg Tab) 5 mg PO DAILY TREVOR Stop: 03/03/23 08:59 Last Admin: 02/01/23 08:41 Dose: 5 mg Documented By: ANTHONY Aspirin (Aspirin 81 Mg Ectab) 81 mg PO DAILY TREVOR Stop: 03/03/23 08:59 Last Admin: 02/01/23 08:41 Dose: 81 mg Documented By: ANTHONY Atenolol (Atenolol 25 Mg Tablet) 25 mg PO DAILY TREVOR Stop: 03/03/23 08:59 Last Admin: 02/01/23 08:41 Dose: 25 mg Documented By: ANTHONY Cetirizine HCl (Cetirizine Hcl 10 Mg Tablet) 5 mg PO DAILY TREVOR Stop: 03/03/23 08:59 Last Admin: 02/01/23 08:41 Dose: 5 mg Documented By: ANTHONY Enoxaparin Sodium (Enoxaparin Inj 40 Mg/0.4 Ml Syr) 40 mg SQ Q24H TREVOR Stop: 03/03/23 08:59 Last Admin: 02/01/23 08:41 Dose: 40 mg Documented By: ANTHONY Ceftriaxone Sodium 2,000 mg/ (Dextrose) 50 mls @ 100 mls/hr IV Q24H [facility]; Protocol Stop: 02/03/23 08:59 Last Infusion: 02/01/23 10:05 Dose: 0 mls/hr Documented By: Admin: 02/01/23 09:35 Dose: 100 mls/hr Documented By: ANTHONY Insulin Aspart (Insulin Aspart Per Unit Charge) 0 units SC ACHS TREVOR Stop: 03/03/23 07:29 Last Admin: 02/01/23 21:40 Dose: Not Given Documented By: LUCIEN Co-signed By: JASVIR Admin: 02/01/23 19:19 Dose: 5 units Documented By: KEIKO Co-signed By: LUCIEN Admin: 02/01/23 11:44 Dose: Not Given Documented By: WALDO Co-signed By: IVY Admin: 02/01/23 09:33 Dose: 3 units Documented By: ANTHONY Co-signed By: GWENDOLYN Levothyroxine Sodium (Levothyroxine Sodium 75 Mcg Tablet) 75 mcg PO DAILYBB [facility] Stop: 03/03/23 06:29 Last Admin: 02/02/23 06:24 Dose: 75 mcg Documented By: Admin: 02/01/23 06:18 Dose: 75 mcg Documented By: INDY Lorazepam (Lorazepam 0.5 Mg Tab) 0.5 mg PO TID TREVOR Stop: 03/03/23 08:59 Last Admin: 02/01/23 21:32 Dose: 0.5 mg Documented By: Admin: 02/01/23 13:51 Dose: 0.5 mg Documented By: Admin: 02/01/23 08:42 Dose: 0.5 mg Documented By: ANTHONY Losartan Potassium (Losartan Potassium 25 Mg Tab) 25 mg PO DAILY TREVOR Stop: 03/03/23 08:59 Last Admin: 02/01/23 08:41 Dose: 25 mg Documented By: ANTHONY Vitamin D (Cholecalciferol 1,000 Units 25 Mcg Tab) 2,000 units PO DAILY TREVOR Stop: 03/03/23 08:59 Last Admin: 02/01/23 08:41 Dose: 2,000 units Documented By: ANTHONY Discontinued Medications Acetaminophen (Acetaminophen 1000 Mg/100 Ml Iv) Confirm Administered Dose 1,000 mg IV .STK-MED ONE Stop: 02/01/23 14:04 Last Admin: 02/01/23 14:10 Dose: 1,000 mg Documented By: GIFTY Alprazolam (Alprazolam 0.5 Mg Tablet) 0.5 mg PO ONCE ONE Stop: 02/01/23 15:46 Last Admin: 02/01/23 16:19 Dose: 0.5 mg Documented By: WALDO Fentanyl Citrate (Fentanyl Citrate Pf 100 Mcg/2 Ml Vial) Confirm Administered Dose 100 mcg .ROUTE .STK-MED ONE Stop: 02/01/23 14:05 Last Admin: 02/01/23 15:00 Dose: Not Given Documented By: GIFTY Sodium Chloride (Nss) 1,000 mls @ 80 mls/hr IV .[id number] [facility] Stop: 02/01/23 16:43 Last Infusion: 02/01/23 14:05 Dose: 0 mls/hr Documented By: Infusion: 02/01/23 14:03 Dose: 80 mls/hr Documented By: Admin: 02/01/23 06:19 Dose: 80 mls/hr Documented By: INDY Ioversol (Optiray 320 500ml) 93 ml IV ONCE ONE Stop: 02/01/23 05:19 Last Admin: 02/01/23 05:19 Dose: 93 ml Documented By: TAMIKO Discharge Plan Visit Data Chief Complaint: Dizziness Stated Complaint: EYE PAIN, LOSS OF BALANCE, DIZZY, HEADACHE ED Provider: Marquita Ervin Discharge Problem: Leukocytosis, Dizziness, Weakness Patient Disposition: Admitted As Inpatient Discharge Instructions Interventions: ED Discharge Assessment Last Done: 02/01/23 04:14
[2023-02-02] MEDS: LEVOTHYROXINE SODIUM 75 MCG TABLET PO SCH (06:24)
[2023-02-02 08:19] LABS: Calcium 9.3 mg/dl (8.6-10.3)
[2023-02-02 08:24] LABS: BUN Creatinine Ratio 16.9 (10-20); Creatinine Clr Calc Pharmacy 33.6 ml/min; Est GFR (African American) 48.7 ml/min
[2023-02-02 08:38] LABS: Hematocrit (blood only) 31.9 % (37.0-47.0); Hemoglobin 10.6 g/dl (12.0-16.0); Mean Corpuscular Hemoglobin 24.3 pg (25.0-34.0); Mean Corpuscular Hgb Conc 33.2 g/dL (32.0-36.0); Mean Corpuscular Volume 73.2 fL (80.0-100.0); Nucleated RBC # (auto) 0.04 K/uL (0.00-0.12); Nucleated RBC % (auto) 0.1 %; Platelet Count 275 K/uL (130-400); RDW Coefficient of Variation 18.1 % (11.5-14.5); RDW Standard Deviation 47.4 fL (36.4-46.3); Red Blood Count 4.36 M/uL (4.20-5.40); White Blood Count 27.94 K/ul (4.8-10.8)
[2023-02-02 08:40] LABS: Basophils # (auto) 1.02 K/uL (0.00-0.20); Basophils % (auto) 3.7 %; Eosinophils % (auto) 3.6 %; Immature Granulocytes # (auto) 2.77 K/uL (0.01-0.20); Immature Granulocytes % (auto) 9.9 %; Lymphocytes # (auto) 3.41 K/uL (1.20-3.40); Lymphocytes % (auto) 12.2 %; Monocytes # (auto) 1.75 K/uL (0.11-0.59); Monocytes % (auto) 6.3 %; Neutrophils # (auto) 17.99 K/uL (1.40-6.50); Neutrophils % (auto) 64.3 %; Ovalocytes 1+; Polychromasia 1+; Schistocytes 1+; Tear Drop Cells 1+
[2023-02-02] MEDS: ENOXAPARIN INJ 40 MG/0.4 ML SYR SQ SCH (08:57)
[2023-02-02] MEDS: CETIRIZINE HCL 10 MG TABLET PO SCH (08:57)
[2023-02-02] MEDS: ASPIRIN 81 MG ECTAB PO SCH (08:58)
[2023-02-02] MEDS: CHOLECALCIFEROL 1,000 UNITS 25 MCG TAB PO SCH (08:58)
[2023-02-02] MEDS: ATENOLOL 25 MG TABLET PO SCH (08:58)
[2023-02-02] MEDS: LOSARTAN POTASSIUM 25 MG TAB PO SCH (08:59)
[2023-02-02] MEDS: amLODIPine BESYLATE 5 MG TAB PO SCH (08:59)
[2023-02-02] MEDS: cefTRIAXone SODIUM 2,000 MG in DEXTROSE 5 % MINI-B 50 ML IV SCH (09:00)
[2023-02-02] MEDS: LORazepam 0.5 MG TAB PO SCH ×2 (09:04→13:54)
[2023-02-02] MEDS: INSULIN ASPART PER UNIT CHARGE SC SCH ×2 (09:14→13:05)
--- NOTE | 2023-02-02 11:41 | Discharge Summary ---
Date of Service February 02, 2023 Admission HPI Per Admitting Provider 87-year-old female with past med history significant for type 2 diabetes, hypothyroidism, dyslipidemia, diabetes with neurological manifestations, paroxysmal atrial fibrillation, hypertension, paroxysmal supraventricular tachycardia, history of nonischemic cardiomyopathy, history of varicose veins of legs with complication, chronic stomach ulcers, chronic kidney disease stage III, polymyalgia rheumatica, history of angioedema, statin intolerance, general anxiety disorder, non-ST load [place], who lives alone in senior apartments presents with ongoing dizziness and imbalance for last 2 weeks and progressively getting worse. Patient is somewhat hard of hearing. Son is in the room who is helping with H&P. Patient denies any headaches. No blurred visions. No earaches. Has some runny nose. No sore throat. No cough. No difficulty swallowing. No fevers. No chest pain or shortness of breath. Has some dry heaves. No abdominal pain. Normal bowel and bladder movements. Currently resting comfortably and hemodynamically stable. Past medical history. As mentioned above Past surgical history. Bilateral carpal tunnel surgery. Colonoscopy. Cataract surgery. Tonsillectomy. Cholecystectomy. Total hysterectomy. Social history. Former smoker. Smoked 2.5 packs a day for 22 years. No alcohol use. No drug use. Family history. Father had renal cancer. Mother had breast cancer. Aunt had breast cancer. Admission Exam Per Admitting Provider General- Not in distress. Head- atraumatic Eyes- PERRL. ENT- oropharynx clear Neck- supple, no JVD. Lungs- clear to auscultation no wheezing or crackles. Heart- regular rhythm; no murmur, no gallop. Abdomen- normal bowel sounds, soft, nontender, no distension. Extremities- no pretibial edema, no erythema seen. Neuro- alert, oriented x 3; PERRL, EOMI; no facial palsy; no dysarthria; motor 5/5 bilaterally;coordination of movements normal. No pronator drift. sensations intact. position sense intact. Skin- warm & dry Principal Diagnosis Dizziness, posterior stroke rule out Leukocytosis Discharge Exam Constitutional: WD/WN, vitals as above, NAD, sitting up in bed, pleasant, conversing easily Respiratory: normal respiratory effort, lungs clear to auscultation, no wheeze, rales, rhonchi. Normal insp/exp effort, no accessory muscle use Cardiovascular: RRR, no murmur, no edema Vessels: no JVD or carotid bruit Chest: normal inspection of chest Abdomen: normal bowel sounds, soft, nontender, no hepatosplenomegaly Musculoskeletal: no cyanosis or clubbing, extremities motor strength 5/5 Skin: no rashes, warm and dry normal turgor Neurologic: PERRL, EOMI, accommodation nl, no face palsy, no dysarthria CN's II- XI intact bilaterally and moves all extremities Psychiatric: A+Ox3, euthymic affect Discharge Data Allergies Allergy/AdvReac Type Severity Reaction Status Date / Time ibuprofen Allergy Intermediate tongue Verified 02/01/23 02:16 swelling latex Allergy Intermediate rash Verified 02/01/23 02:16 lisinopril Allergy Mild HIVES Verified 02/01/23 02:16 metoprolol Allergy Mild HIVES Verified 02/01/23 02:16 Penicillins Allergy Mild HIVES Verified 02/01/23 02:16 Sulfa (Sulfonamide Allergy Mild NAUSEA AND Verified 02/01/23 02:16 Antibiotics) VOMITING Consultations 02/01/23 00:51 ED Decision to Admit Stat 02/01/23 08:00 Consult Hematology Routine Ordered Studies 02/01/23 04:14 CT head/brain wo con Urgent CTA head w con [CT angio head w con] Urgent CTA neck with con [CT angio neck with con] Urgent 02/01/23 13:37 MRI Brain [MR brain wo con] Routine 02/01/23 13:38 IR bone marrow bx & asp Routine Hospital Course (1) Dizziness: 87-year-old female with past med history significant for type 2 diabetes, hypothyroidism, dyslipidemia, diabetes with neurological manifestations, paroxysmal atrial fibrillation, hypertension, paroxysmal supraventricular tachycardia, history of nonischemic cardiomyopathy, history of varicose veins of legs with complication, chronic stomach ulcers, chronic kidney disease stage III, polymyalgia rheumatica, history of angioedema, statin intolerance, general anxiety disorder, non-ST load [place], who lives alone in senior apartments presents with ongoing dizziness and imbalance for last 2 weeks and progressively getting worse. Patient was a admitted to telemetry floor. CT head without contrast, CT head and neck was done; mild stenosis(30%) of the proximal right ICA was seen. No other acute finding. Brain MRI was done to rule out stroke. No lacunar infarct in right cerebellum was noted. Patient was also found to have leukocytosis with WBC count of 40,000. Hematology consultation was done. Peripheral blood smear showed finding consistent with leukemoid reaction and rare blast and rare nucleated cells. Bone marrow biopsy was done as recommended by hemato-oncologist. Patient to follow-up with cancer care [facility] at [facility] after discharge to review the results Patient will also follow-up with primary care doctor and discuss regarding addition of statin. No medication changes were done Discharge instruction were discussed with patient's son over the phone. Please note the above document was generated using voice recognition software. It may contain grammatical, syntax or spelling errors. Any formal questions or concerns about the content, text or information contained within the body of this dictation should be directly addressed to the provider for clarification Total Time Total Time Spent Total Time Spent (In Minutes): 45 Total Time Includes: Examination of the Patient, Discharge Planning, Medication Reconciliation, Communication With Other Providers and Other Discharge Plan Discharge Items Patient Disposition: Home - Self-Care Reason For Visit: DIZZINESS, IMBALANCE Discharge Diagnosis: Dizziness, stroke ruled out Leukocytosis Activity: Resume your previous activity Non-emergency contact: Primary Care Provider Call non-emergency contact if: you have any medication questions and your symptoms worsen Follow-up/Referrals: Ayan Trinh MD [Primary Care Provider] - (Date & Time 02/06/2023 10:00 Kannan Andino, [facility] ) Diet: Regular Addtl Attending Provider Instructions: You were admitted to the hospital due to imbalance. Studies including MRI of the brain was done to rule out stroke. Please continue to take aspirin as you a re doing previously. Please discuss with your primary care doctor regarding addition of statin. An appointment is set up with your primary care doctor for Saturday. You were also found to have high WBC count for which bone marrow study and blood test are done. Please follow-up with Cancer care partnership at [facility]. The welding machine operator/tender/oncologist doctor that evaluated you during the hospitalization is Reyes Marx. Please call [phone] to make appointment for sometime next week. Follow-up with your metropolitan editor on Saturday Pending Studies at Discharge: Yes (Bone marrow biopsy results, multiple blood tests to rule out leukemia) Stand-Alone Forms: My [facility], Smoking Cessation Medications and DC Order Prescriptions: Continued metformin 500 mg Tablet 500 mg PO BIDM amlodipine 5 mg Tablet 5 mg PO DAILY aspirin [Rakesh Low Dose Aspirin] 81 mg Tablet,Delayed Release (Dr/Ec) 81 mg PO DAILY levothyroxine 75 mcg Tablet 75 mcg PO DAILYBB lorazepam 0.5 mg Tablet 0.5 mg PO TID losartan 25 mg Tablet 25 mg PO DAILY atenolol 25 mg tablet 25 mg PO DAILY cholecalciferol (vitamin D3) 1,000 unit Tablet 2,000 unit PO DAILY coenzyme Q10 50 mg Capsule 50 mg PO DAILY biotin 2,500 mcg Capsule 2,500 mcg PO DAILY cetirizine [Zyrtec] 10 mg Tablet 5 mg PO DAILY pantoprazole 40 mg tablet,delayed release (DR/EC) 40 mg PO DAILY PRN (Reason: Acid Reflux) fluticasone propionate 50 mcg/actuation spray,suspension 2 spray INTRANASAL DAILY PRN (Reason: Congestion) acetaminophen [Tylenol Arthritis Pain] 650 mg Tablet Extended Release 1,300 mg PO DAILY PRN (Reason: Pain) Discharge Orders: Discharge Order (Routine); Ordered 02/02/23 Ordered By: Jass Pitt/Other Patient Handouts: Managing Type 2 Diabetes Admission Data Admit Date/Time: 02/01/23 01:43 Attending Provider: Jass Polo Admit Provider: Sandoval Avina Primary Care Provider: Ayan Trinh Other Providers: Sandoval Avina ; Reyes Marx Other Interventions: Discharge Summary Assessment (RN) Last Done: 02/02/23 12:33
--- NOTE | 2023-02-02 18:29 | Communication Note ---
Date of Service: February 02, 2023 By CMS guidelines, a determination that the admission or continued stay is not medically necessary has been made by a member of the UR committee and a ph ysician for this hospital stay, therefore a Code 44 will be completed and the Inpatient admission will be changed to outpatient.
== END 2023-02-02 15:15 | disposition home or self-care (01) ==
LOC: ED 19:10 → INTOOBSV 02-01 01:43 → EDINP 02-01 01:43 → 2N 02-01 04:14

== ENCOUNTER 2024-11-18 14:46 | Inpatient (IN) ==
--- NOTE | 2024-11-18 15:04 | Emergency Department Note ---
History of Present Illness General Chief complaint: Weakness Stated complaint: WEAKNESS Time Seen by Provider: 11/18/24 14:54 Source: patient and family (Son at bedside) History of Present Illness Provider complaint: Weakness 89-year-old female on chemotherapy for CLL per son presents emergency department for weakness. Son reports that the patient is becoming increasingly weak for the last 2 weeks. No falls or traumas. No headache chest pain difficulty breathing. No abdominal pain. Patient reports nausea. Son reports recent iron infusion. No melena hematochezia. No hematuria or dysuria. No vaginal bleeding. Home Medications Medication Instructions Recorded Confirmed Type levothyroxine 75 mcg tablet 75 mcg PO DAILYBB 12/21/17 11/18/24 History lorazepam 0.5 mg tablet 0.5 - 1 mg PO Q8 PRN Anxiety 12/21/17 11/18/24 History losartan 25 mg tablet 25 mg PO QAM 12/21/17 11/18/24 History metformin 500 mg tablet 500 mg PO BIDM 12/21/17 11/18/24 History atenolol 25 mg tablet 25 mg PO QAM 01/06/18 11/18/24 History biotin 2,500 mcg capsule 2,500 mcg PO DAILY 01/06/18 11/18/24 History cholecalciferol (vitamin D3) 25 1,000 unit PO DAILY 01/06/18 11/18/24 History mcg (1,000 unit) tablet coenzyme Q10 50 mg capsule 50 mg PO DAILY 01/06/18 11/18/24 History cetirizine 10 mg tablet (Zyrtec) 5 mg PO QAM PRN Allergy Symptoms 03/05/21 11/18/24 History pantoprazole 40 mg tablet,delayed 40 mg PO DAILY 03/05/21 11/18/24 History release acetaminophen 650 mg 1,300 mg PO DAILY PRN Pain 02/01/23 11/18/24 History tablet,extended release (Tylenol Arthritis Pain) glipizide 2.5 mg tablet, extended 2.5 mg PO QAM 11/18/24 11/18/24 History release 24 hr Allergies Allergy/AdvReac Type Severity Reaction Status Date / Time ibuprofen Allergy Intermediate tongue Verified 10/07/24 08:53 swelling latex Allergy Intermediate rash Verified 10/07/24 08:53 lisinopril Allergy Mild HIVES Verified 10/07/24 08:53 metoprolol Allergy Mild HIVES Verified 10/07/24 08:53 Penicillins Allergy Mild HIVES Verified 10/07/24 08:53 Sulfa (Sulfonamide Allergy Mild NAUSEA AND Verified 10/07/24 08:53 Antibiotics) VOMITING Past Med/Surg History Problem List (Updated 11/18/24 @ 17:35 by Brittny Manjarrez PA-C) Generalized weakness COVID-19 (Acute) Dizziness (Acute) Weakness (Acute) Dizziness (Acute 11/11/11) Epistaxis (Acute) 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) Vitamin D deficiency (Chronic 11/11/11) Medical History Leukocytosis Hypothyroidism Diabetes mellitus, type 2 Anxiety Hypertension Hyperlipidemia Recent myocardial infarction Diabetes Surgical History History of cholecystectomy History of total knee replacement right History of total hip arthroplasty left History of cardiac cath Family History (Updated 11/18/24 @ 17:28 by Brittny Manjarrez PA-C) Mother Breast cancer Social History Smoking Status: Former smoker Hx Alcohol Use: No Hx Substance Use: No Preferred Language: Belgian Communication Ability: Effective Visual Impairment: No Limitations Hearing Ability: Normal Computer Network Support Specialist Required: No Beliefs That Will Affect Care: None Current Living Situation: Family current occupation: Retired Feels Safe at Home: Yes Assistive Devices: Cane Physical Exam Vital Signs Vital Signs - 24 hr 11/18/24 14:49 11/18/24 15:02 11/18/24 15:27 Temperature 36.7 C Temperature Source Temporal Artery Scan Pulse Rate 81 83 Pulse Rate [Apical] Respiratory Rate 14 Respiratory Effort / Characteristics Respiratory Depth Blood Pressure 123/62 Blood Pressure [Right Arm] Blood Pressure Mean 82 Blood Pressure Mean [Right Arm] Pulse Oximetry 98 94 Oxygen Delivery Method Room Air Room Air Sepsis New/Unexplained Change in Mental Status No Sepsis Action Taken by Nursing No Action Required 11/18/24 15:28 Temperature Temperature Source Pulse Rate Pulse Rate [Apical] 81 Respiratory Rate 26 H Respiratory Effort / Characteristics Non-Labored Spontaneous Respiratory Depth Normal Blood Pressure Blood Pressure [Right Arm] 174/84 H Blood Pressure Mean Blood Pressure Mean [Right Arm] 114 Pulse Oximetry 95 Oxygen Delivery Method Room Air Sepsis New/Unexplained Change in Mental Status Sepsis Action Taken by Nursing Physical Exam GENERAL: oriented to person, place, and time. appears well-developed and well- nourished. HENT: Exam performed. - Head: Normocephalic and atraumatic. EYES: Conjunctivae and EOM are normal. Right eye exhibits no discharge. Left eye exhibits no discharge. No scleral icterus. NECK: Normal range of motion. Neck supple. No JVD present. CV: Normal rate, regular rhythm, normal heart sounds and intact distal pulses. There is no peripheral edema. Palpable radial pulses bue. PULM/CHEST: Effort normal and breath sounds normal. No respiratory distress. No stridor. no wheezes. no rales. ABD: The abdomen is soft. There is no tenderness. NEURO: Motor and sensation grossly intact. SKIN: Skin is warm and dry. He is not diaphoretic. PSYCH: normal mood and affect. Behavior is normal. Judgment and thought content normal. Course Course 1454: The patient was evaluated in room A10. A complete history and physical exam was performed Cardiac monitoring: An order was placed for continuous cardiac monitoring. The monitor shows a rate of 60 with sinus arrhythmia interpreted by or 1605: Vital signs stable. Labs show a hemoglobin of 7.9. Patient's baseline hemoglobin runs around 8. Hemoglobin 2 days ago 7.9. Labs are also significant for a magnesium of 1.2. Magnesium repletion started in the emergency department. High-sensitivity troponin 54.3 patient has a chronically elevated high-sensitivity troponin. Procalcitonin level 0.92. Urine is pending. Will treat the patient with empiric cefepime given her history of chemotherapy. Patient will be admitted to the hospitalist team. Administered Medications Discontinued Medications Sodium Chloride (Nss) 500 mls @ 999 mls/hr IV .Q31M [facility] Stop: 11/18/24 15:30 Last Infusion: 11/18/24 15:56 Dose: Infused Documented By: Admin: 11/18/24 15:26 Dose: 999 mls/hr Documented By: CARMEL Magnesium Sulfate/Dextrose (Magnesium Sulfate / D5w) 1 gm in 100 mls @ 100 mls/hr IV NOW STA Stop: 11/18/24 17:02 Last Infusion: 11/18/24 17:16 Dose: Infused Documented By: Admin: 11/18/24 16:21 Dose: 100 mls/hr Documented By: ROYAL Cefepime HCl (Maxipime 2000mg) 2,000 mg in 20 mls @ 5 mls/min IV NOW STA; Protocol Stop: 11/18/24 16:12 Last Admin: 11/18/24 16:23 Dose: 5 mls/min Documented By: ROYAL Medical Decision Making Laboratory Data Attestation: I reviewed the patient's lab results. 11/18/24 15:04 11/18/24 15:04 Lab Results 11/18/24 11/18/24 11/18/24 Range/Units 15:04 15:20 15:28 WBC 6.23 (4.8-10.8) K/ul RBC 3.46 L (4.20-5.40) M/uL Hgb 7.9 L (12.0-16.0) g/dl Hct 24.5 L (37.0-47.0) % MCV 70.8 L (80.0-100.0) fL MCH 22.8 L (25.0-34.0) pg MCHC 32.2 (32.0-36.0) g/dL RDW Std Deviation 50.6 H (36.4-46.3) fL RDW Coeff of Nadia 20.8 H (11.5-14.5) % Plt Count (130-400) K/uL MPV (9.4-12.4) fL Absolute Nucleated RBC 0.69 H (0.00-0.12) K/uL Nucleated RBC % (auto) 11.1 % Neutrophils % (Manual) 62 % Lymphocytes % (Manual) 24 % Monocytes % (Manual) 1 % Eosinophils % (Manual) 3 % Basophils % (Manual) 2 % Metamyelocytes % (Man) 5 % Myelocytes % (Man) 3 % Neutrophils # (Manual) 3.86 (1.40-6.50) K/uL Total Absolute Neuts 3.86 (1.4-6.5) K/uL Lymphocytes # (Manual) 1.50 (1.2-3.4) K/uL Total Abs Lymphocytes 1.50 (1.2-3.4) K/uL Monocytes # (Manual) 0.06 L (0.11-0.59) K/uL Eosinophils # (Manual) 0.19 (0-0.50) K/uL Basophils # (Manual) 0.12 (0-0.2) K/uL Metamyelocytes # (Man) 0.31 H (0-0) K/uL Myelocytes # (Manual) 0.19 H (0-0) K/uL Plt Count ,Citrate 118 L (130-400) K/uL Polychromasia 1+ Microcytosis Present Tear Drop Cells 2+ PT 11.8 (9.0-12.0) Seconds INR 1.1 (0.9-1.1) APTT 31 (21-31) Seconds PTT Ratio 1.2 VBG pH 7.41 (7.36-7.41) VBG pCO2 32 L (38-50) mmHg VBG pO2 49 mmHg VBG HCO3 20 mmol/L VBG O2 Saturation 80.9 % VBG Base Excess -3.4 mEq/L Sodium 134 L (136-145) mmol/L Potassium 4.7 (3.5-5.1) mmol/L Chloride 104 (98-107) mmol/L Carbon Dioxide 20 L (21-32) mmol/L Anion Gap 10 (3-11) BUN 27 H (6-23) mg/dl Creatinine 1.25 H (0.6-1.2) mg/dl Est Cr Clr Drug Dosing 29.0 ml/min eGFR 41.72 BUN/Creatinine Ratio 21.6 H (10-20) Glucose 117 H (70-99(Fasting)) mg/dl Lactate 1.2 (0.4-2.0) mmol/L Uric Acid (2.6-7.2) mg/dl Calcium 9.0 (8.6-10.3) mg/dl Phosphorus (2.5-4.9) mg/dl Magnesium 1.2 L (1.7-2.4) mg/dl Iron (35-150) mcg/dl TIBC (250-450) mcg/dl Transferrin (200-360) mg/dl Transferrin % Sat (15-50) % Total Bilirubin 0.7 (0.2-1.0) mg/dl Direct Bilirubin 0.1 (0-0.2) mg/dl AST 16 (13-39) U/L ALT 8 (7-52) U/L Alkaline Phosphatase 93 (34-104) U/L Lactate Dehydrogenase (86-244) U/L Total Creatine Kinase (26-192) U/L Troponin I High Sens 54.3 H* (0-14) pg/ml Total Protein 6.9 (6.0-8.3) gm/dl Albumin 4.1 (3.4-5.0) gm/dl Vitamin B12 448 (180-914) pg/ml Procalcitonin 0.92 H (0-0.5) ng/ml TSH (0.300-4.500) uIu/ml Urine Color Urine Appearance (Clear) Urine pH (4.5-7.5) Ur Specific [place] (1.000-1.030) Urine Protein (Negative) Urine Glucose (UA) (Negative) Urine Ketones (Negative) Urine Blood (Negative) Urine Nitrite (Negative) Urine Bilirubin (Negative) Urine Urobilinogen (Negative) Ur Leukocyte Esterase (Negative) Urine WBC (Auto) (0-5) /hpf Urine RBC (Auto) (0-2) /hpf U Hyaline Cast (Auto) (0-2) /lpf U Epithel Cells (Auto) (0-2) /hpf Urine Bacteria (Auto) (None Seen) Urine Comment Adenovirus (PCR) Not Detected (NotDetected) B. pertussis DNA (PCR) Not Detected (NotDetected) B.parapertussis DNA PCR Not Detected (NotDetected) C. pneumoniae DNA (PCR) Not Detected (NotDetected) Coronavirus OC43 (PCR) Not Detected (NotDetected) Coronavirus HKU1 (PCR) Not Detected (NotDetected) Coronavirus 229E (PCR) Not Detected (NotDetected) SARS-CoV-2 (PCR) Not Detected (NotDetected) Coronavirus NL63 (PCR) Not Detected (NotDetected) Human Metapneumovir PCR Not Detected (NotDetected) Influenza Type A (PCR) Not Detected (NotDetected) Influenza Type B (PCR) Not Detected (NotDetected) M. pneumoniae (PCR) Not Detected (NotDetected) Parainfluenza 1 (PCR) Not Detected (NotDetected) Parainfluenza 2 (PCR) Not Detected (NotDetected) Parainfluenza 3 (PCR) Not Detected (NotDetected) Parainfluenza 4 (PCR) Not Detected (NotDetected) RSV (PCR) Not Detected (NotDetected) Entero/Rhino (PCR) Not Detected (NotDetected) 11/18/24 11/18/24 Range/Units 16:13 16:57 WBC (4.8-10.8) K/ul RBC (4.20-5.40) M/uL Hgb (12.0-16.0) g/dl Hct (37.0-47.0) % MCV (80.0-100.0) fL MCH (25.0-34.0) pg MCHC (32.0-36.0) g/dL RDW Std Deviation (36.4-46.3) fL RDW Coeff of Nadia (11.5-14.5) % Plt Count (130-400) K/uL MPV (9.4-12.4) fL Absolute Nucleated RBC (0.00-0.12) K/uL Nucleated RBC % (auto) % Neutrophils % (Manual) % Lymphocytes % (Manual) % Monocytes % (Manual) % Eosinophils % (Manual) % Basophils % (Manual) % Metamyelocytes % (Man) % Myelocytes % (Man) % Neutrophils # (Manual) (1.40-6.50) K/uL Total Absolute Neuts (1.4-6.5) K/uL Lymphocytes # (Manual) (1.2-3.4) K/uL Total Abs Lymphocytes (1.2-3.4) K/uL Monocytes # (Manual) (0.11-0.59) K/uL Eosinophils # (Manual) (0-0.50) K/uL Basophils # (Manual) (0-0.2) K/uL Metamyelocytes # (Man) (0-0) K/uL Myelocytes # (Manual) (0-0) K/uL Plt Count ,Citrate (130-400) K/uL Polychromasia Microcytosis Tear Drop Cells PT (9.0-12.0) Seconds INR (0.9-1.1) APTT (21-31) Seconds PTT Ratio VBG pH (7.36-7.41) VBG pCO2 (38-50) mmHg VBG pO2 mmHg VBG HCO3 mmol/L VBG O2 Saturation % VBG Base Excess mEq/L Sodium (136-145) mmol/L Potassium (3.5-5.1) mmol/L Chloride (98-107) mmol/L Carbon Dioxide (21-32) mmol/L Anion Gap (3-11) BUN (6-23) mg/dl Creatinine (0.6-1.2) mg/dl Est Cr Clr Drug Dosing ml/min eGFR BUN/Creatinine Ratio (10-20) Glucose (70-99(Fasting)) mg/dl Lactate (0.4-2.0) mmol/L Uric Acid 9.5 H (2.6-7.2) mg/dl Calcium (8.6-10.3) mg/dl Phosphorus 4.3 (2.5-4.9) mg/dl Magnesium (1.7-2.4) mg/dl Iron 584 H (35-150) mcg/dl TIBC 290 (250-450) mcg/dl Transferrin 207 (200-360) mg/dl Transferrin % Sat 201 H (15-50) % Total Bilirubin (0.2-1.0) mg/dl Direct Bilirubin (0-0.2) mg/dl AST (13-39) U/L ALT (7-52) U/L Alkaline Phosphatase (34-104) U/L Lactate Dehydrogenase 598 H (86-244) U/L Total Creatine Kinase 15 L (26-192) U/L Troponin I High Sens 50.4 H* (0-14) pg/ml Total Protein (6.0-8.3) gm/dl Albumin (3.4-5.0) gm/dl Vitamin B12 (180-914) pg/ml Procalcitonin (0-0.5) ng/ml TSH 3.331 (0.300-4.500) uIu/ml Urine Color Yellow Urine Appearance Clear (Clear) Urine pH 5.5 (4.5-7.5) Ur Specific [place] 1.021 (1.000-1.030) Urine Protein 1+ H (Negative) Urine Glucose (UA) Negative (Negative) Urine Ketones Trace H (Negative) Urine Blood Negative (Negative) Urine Nitrite Negative (Negative) Urine Bilirubin Negative (Negative) Urine Urobilinogen Negative (Negative) Ur Leukocyte Esterase 2+ H (Negative) Urine WBC (Auto) 21-50 H (0-5) /hpf Urine RBC (Auto) 0-2 (0-2) /hpf U Hyaline Cast (Auto) 0-2 (0-2) /lpf U Epithel Cells (Auto) 0-2 (0-2) /hpf Urine Bacteria (Auto) None Seen (None Seen) Urine Comment Adenovirus (PCR) (NotDetected) B. pertussis DNA (PCR) (NotDetected) B.parapertussis DNA PCR (NotDetected) C. pneumoniae DNA (PCR) (NotDetected) Coronavirus OC43 (PCR) (NotDetected) Coronavirus HKU1 (PCR) (NotDetected) Coronavirus 229E (PCR) (NotDetected) SARS-CoV-2 (PCR) (NotDetected) Coronavirus NL63 (PCR) (NotDetected) Human Metapneumovir PCR (NotDetected) Influenza Type A (PCR) (NotDetected) Influenza Type B (PCR) (NotDetected) M. pneumoniae (PCR) (NotDetected) Parainfluenza 1 (PCR) (NotDetected) Parainfluenza 2 (PCR) (NotDetected) Parainfluenza 3 (PCR) (NotDetected) Parainfluenza 4 (PCR) (NotDetected) RSV (PCR) (NotDetected) Entero/Rhino (PCR) (NotDetected) Imaging Data Radiologist's Impression: Chest X-Ray 11/18/24 15:00 XR chest 1V portable CLINICAL HISTORY: Sepsis COMPARISON STUDY: 07/09/2024 FINDINGS: There is stable moderate cardiomegaly without pulmonary vascular congestion. No consolidation or pleural effusion. No pneumothorax. IMPRESSION: No acute findings. ACT 112: Negative or not required by law. Electronically signed by: Andre Brown M.D. 11/18/2024 3:[address] 11/18/24 15:00 CT head/brain wo con CLINICAL HISTORY: weakness. TECHNIQUE: Multiple axial CT images of the head were obtained without contrast. A dose lowering technique was utilized adhering to the principles of ALARA. CT DOSE: 547.75 mGy.cm COMPARISON: 07/09/2024 FINDINGS: No intracranial hemorrhage seen. No mass effect, midline shift, or hydrocephalus. There are stable mild chronic small vessel ischemic changes. Visualized paranasal sinuses and mastoid air cells are clear. No skull fracture seen. IMPRESSION: No acute findings. ACT 112: Negative or not required by law. The above report was generated using voice recognition software. It may contain grammatical, syntax or spelling errors. Electronically signed by: Andre Brown M.D. 11/18/2024 3:38 PM ECG Data Attestation: I personally reviewed and interpreted this ECG as follows: Rate (beats per minute): 65 Rhythm: + sinus with SA ECG Intervals/blocks: + Normal QRS, + Normal WA and + Normal QT-c ECG ST segments: + Normal ST segments [facility] Narrative 1454: The patient was evaluated in room A10. A complete history and physical exam was performed Cardiac monitoring: An order was placed for continuous cardiac monitoring. The monitor shows a rate of 60 with sinus arrhythmia interpreted by me 1605: Vital signs stable. Labs show a hemoglobin of 7.9. Patient's baseline hemoglobin runs around 8. Hemoglobin 2 days ago 7.9. Labs are also significant for a magnesium of 1.2. Magnesium repletion started in the emergency department. High-sensitivity troponin 54.3 patient has a chronically elevated high-sensitivity troponin. Procalcitonin level 0.92. Urine is pending. Will treat the patient with empiric cefepime given her history of chemotherapy. Patient will be admitted to the hospitalist team. Impression & Plan Hypomagnesemia, Elevated procalcitonin Discharge Plan Visit Data Chief Complaint: Weakness Stated Complaint: WEAKNESS ED Provider: Jared Mcguire Discharge Problem: Hypomagnesemia, Elevated procalcitonin Patient Disposition: Admitted As Inpatient Condition: Fair Forms Stand Alone Forms: My [facility] Prescriptions Prescriptions: No Action metformin 500 mg Tablet 500 mg PO BIDM levothyroxine 75 mcg Tablet 75 mcg PO DAILYBB lorazepam 0.5 mg Tablet 0.5 - 1 mg PO Q8 PRN (Reason: Anxiety) losartan 25 mg Tablet 25 mg PO QAM atenolol 25 mg tablet 25 mg PO QAM cholecalciferol (vitamin D3) 1,000 unit Tablet 1,000 unit PO DAILY coenzyme Q10 50 mg Capsule 50 mg PO DAILY biotin 2,500 mcg Capsule 2,500 mcg PO DAILY cetirizine [Zyrtec] 10 mg Tablet 5 mg PO QAM PRN (Reason: Allergy Symptoms) pantoprazole 40 mg tablet,delayed release (DR/EC) 40 mg PO DAILY acetaminophen [Tylenol Arthritis Pain] 650 mg Tablet Extended Release 1,300 mg PO DAILY PRN (Reason: Pain) glipizide 2.5 mg tablet extended release 24hr 2.5 mg PO QAM Referrals Referrals: Ayan Trinh MD [Primary Care Provider] -
--- NOTE | 2024-11-18 15:19 | XRay Report ---
XR chest 1V portable CLINICAL HISTORY: Sepsis COMPARISON STUDY: 07/09/2024 FINDINGS: There is stable moderate cardiomegaly without pulmonary vascular congestion. No consolidati on or pleural effusion. No pneumothorax. IMPRESSION: No acute findings. ACT 112: Negative or not required by law. Electronically signed by: Andre Brown M.D. 11/18/2024 3:18 PM
[2024-11-18] MEDS: SODIUM CHLORIDE 0.9% 500 ML IV SCH (15:26)
[2024-11-18 15:33] LABS: Base Excess VBG -3.4 mEq/L; HCO3 VBG 20 mmol/L; Oxygen Saturation VBG 80.9 %; PCO2 VBG 32 mmHg (38-50); PO2 VBG 49 mmHg; pH VBG 7.41 (7.36-7.41)
--- NOTE | 2024-11-18 15:39 | CT Scan Report ---
CT head/brain wo con CLINICAL HISTORY: weakness. TECHNIQUE: Multiple axial CT images of the head were obtained without contrast. A dose lowering tech nique was utilized adhering to the principles of ALARA. CT DOSE: 547.75 mGy.cm COMPARISON: 07/09/2024 FINDINGS: No intracranial hemorrhage seen. No mass effect, midline shift, or hydrocephalus. There are stable mild chronic small vessel ischemic changes. Visualized paranasal sinuses and mastoid air cell s are clear. No skull fracture seen. IMPRESSION: No acute findings. ACT 112: Negative or not required by law. The above report was generated using voice recognition software. It may contain grammatical, syntax o r spelling errors. Electronically signed by: Andre Brown M.D. 11/18/2024 3:38 PM
[2024-11-18 15:40] LABS: Alanine Aminotransferase 8.0 U/L (7-52); Alkaline Phosphatase 93.0 U/L (34-104); Anion Gap 10.0 (3-11); Bilirubin,Total 0.7 mg/dl (0.2-1.0); Blood Urea Nitrogen 27.0 mg/dl (6-23); Calcium 9.0 mg/dl (8.6-10.3); Carbon Dioxide 20.0 mmol/L (21-32); Chloride 104.0 mmol/L (98-107); Creatinine Clr Calc Pharmacy 29.0 ml/min; Glucose 117.0 mg/dl (70-99(Fasting)); Magnesium 1.2 mg/dl (1.7-2.4); Potassium 4.7 mmol/L (3.5-5.1); Sodium 134.0 mmol/L (136-145); Total Protein 6.9 gm/dl (6.0-8.3)
[2024-11-18 15:56] LABS: Hematocrit (blood only) 24.5 % (37.0-47.0); Hemoglobin 7.9 g/dl (12.0-16.0); Mean Corpuscular Hemoglobin 22.8 pg (25.0-34.0); Mean Corpuscular Volume 70.8 fL (80.0-100.0); RDW Standard Deviation 50.6 fL (36.4-46.3); Red Blood Count 3.46 M/uL (4.20-5.40)
[2024-11-18] MEDS: MAGNESIUM SULFATE / D5W 1 GM/100 ML BAG IV STA (16:21)
[2024-11-18] MEDS: CEFEPIME 2000MG 2,000 MG/20 ML SYR IV STA (16:23)
--- NOTE | 2024-11-18 16:23 | History & Physical Report ---
Date of Service November 18, 2024 Assessment & Plan (1) Generalized weakness: Plan: Patient is 89-year-old female with PMH HTN, dyslipidemia, PAF, paroxysmal supraventricular tachycardia, CAD, h/o nonischemic cardiomyopathy, CKD III, PMR, DM II, hypothyroidism, primary myelofibrosis with monocytosis presented to ER with c/o ongoing generalized weakness and fatigue. Denies F/C, N/V/D, urinary symptoms CXR: No acute infiltrate CT Head: no acute intracranial findings UA: 2+leuk esterase, 21-50 WBC, No bacteria. Negative respiratory biofire panel Urine culture pending Blood culture pending May be secondary to underlying progressive cancer. R/O underlying infection Fall precautions PT/OT eval #Primary myelofibrosis with monocytosis Today WBC: 6.2, H/H: 7.9/24.5 (hgb: 8.2 on 11/09) Plt: 118 (99 on 11/09, 200 on 11/02) Follows with oncology, Dr Marx who per 11/03/24 outpatient note suggested that CA is progressing in absence of HMA therapy and recommends continuing Vidaza. Started EPO agents with severe anemia. Transfuse if hemoglobin less than 8 and platelet count less than 30,000. Patient Received IV iron today 11/18/24 outpatient Received epoetin on 11/17/24 Will obtain B12, iron studies, folic acid LDH, uric acid, peripheral smear, PT INR, PTT Consider oncology consult CBC, BMP in am #Hypomagnesemia Magnesium: 1.2 In ER given 1gram magnesium sulfate Replace and monitor #Elevated troponin Denies CP/SOB Troponin: 54 Sinus rhythm, rate 72, No ST elevation, no significant change in compared to EKG 07/09/24 per my interpretation Trend troponin EKG prn and in AM Echo #CKD III Cr: 1.25. Baseline Cr: ~1.2 Monitor renal functions, avoid nephrotoxic agents when possible #DM II A1c: 6.0 on 08/25/24 Hold metformin, glipizide #PAF Not on anticoagulation Current sinus rhythm Continue atenolol #CAD #HTN Continue atenolol, losartan #Hypothyroidism TSH pending Continue levothyroxine #Anxiety On lorazapam. Pt reports uses at least once a day DVT Prophylaxis SCDs for now Admit med tele DNR/DNI as per discussion with pt and pt's son at bedside Follows with Dr Trinh for routine care Pt was seen and care coordinated with Dr Alvarez. See addendum I spent a total of 73 minutes reviewing notes, outpatient records, labs, medication, coordinating, documenting and providing care for this patient excluding time spent in the performance of separately billed services and excluding time spent by another provider/QHP. History of Present Illness Chief Complaint: weakness Primary Care Provider: Ayan Trinh MD Patient is 89-year-old female with PMH HTN, dyslipidemia, PAF, paroxysmal supraventricular tachycardia, CAD, h/o nonischemic cardiomyopathy, CKD III, PMR, DM II, hypothyroidism, primary myelofibrosis with monocytosis presented to ER with c/o ongoing generalized weakness and fatigue. History obtained from chart review and patient's son. Patient reports for nearly two months having generalized weakness and fatigue. Reports sleeping most of the time. Follows with Dr Marx, oncology. States appetite fair. Reports doesn't drink much water. Reports dry intermittent cough and rhinorrhea for "many" months and denies any worsening. Lives at home alone. Uses walker to ambulate. Denies falls. Son reports had IV iron today. States on 11/17/24 had epoetin. Son thinks had PRBC transfusion 2 weeks ago. Reports last BM yesterday. Denies fever/chills, diaphoresis, N/V/D, melena, hematochezia, RYAN, dizziness, syncope, vision changes, neck pain, CP, SOB, palpitations, sore throat, otalgia, abdominal pain, paresthesias, extremity edema, rashes, urinary symptoms. Per outpatient chart review [facility], Dr. 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 Her cancer is progressing in absence of HMA therapy. Continue Vidaza. Proceed with treatment. Check CBC every 2 week. Transfuse if hemoglobin less than 8 and platelet count less than 30,000. Will transfuse 1 unit PRBC Start on EPO agents because of severe anemia Give 1 cycle IV iron along with EPO Allergies Allergy/AdvReac Type Severity Reaction Status Date / Time ibuprofen Allergy Intermediate tongue Verified 10/07/24 08:53 swelling latex Allergy Intermediate rash Verified 10/07/24 08:53 lisinopril Allergy Mild HIVES Verified 10/07/24 08:53 metoprolol Allergy Mild HIVES Verified 10/07/24 08:53 Penicillins Allergy Mild HIVES Verified 10/07/24 08:53 Sulfa (Sulfonamide Allergy Mild NAUSEA AND Verified 10/07/24 08:53 Antibiotics) VOMITING Home Medications Medication Instructions Recorded Confirmed Type levothyroxine 75 mcg tablet 75 mcg PO DAILYBB 12/21/17 11/18/24 History lorazepam 0.5 mg tablet 0.5 - 1 mg PO Q8 PRN Anxiety 12/21/17 11/18/24 History losartan 25 mg tablet 25 mg PO QAM 12/21/17 11/18/24 History metformin 500 mg tablet 500 mg PO BIDM 12/21/17 11/18/24 History atenolol 25 mg tablet 25 mg PO QAM 01/06/18 11/18/24 History biotin 2,500 mcg capsule 2,500 mcg PO DAILY 01/06/18 11/18/24 History cholecalciferol (vitamin D3) 25 1,000 unit PO DAILY 01/06/18 11/18/24 History mcg (1,000 unit) tablet coenzyme Q10 50 mg capsule 50 mg PO DAILY 01/06/18 11/18/24 History cetirizine 10 mg tablet (Zyrtec) 5 mg PO QAM PRN Allergy Symptoms 03/05/21 11/18/24 History pantoprazole 40 mg tablet,delayed 40 mg PO DAILY 03/05/21 11/18/24 History release acetaminophen 650 mg 1,300 mg PO DAILY PRN Pain 02/01/23 11/18/24 History tablet,extended release (Tylenol Arthritis Pain) glipizide 2.5 mg tablet, extended 2.5 mg PO QAM 11/18/24 11/18/24 History release 24 hr Past Med/Surg History Problem List (Updated 11/18/24 @ 17:35 by Brittny Manjarrez PA-C) Generalized weakness COVID-19 (Acute) Dizziness (Acute) Weakness (Acute) Dizziness (Acute 11/11/11) Epistaxis (Acute) 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) Vitamin D deficiency (Chronic 11/11/11) Medical History Leukocytosis Hypothyroidism Diabetes mellitus, type 2 Anxiety Hypertension Hyperlipidemia Recent myocardial infarction Diabetes Surgical History History of cholecystectomy History of total knee replacement right History of total hip arthroplasty left History of cardiac cath Family History (Updated 11/18/24 @ 17:28 by Brittny Manjarrez PA-C) Mother Breast cancer Social History Smoking Status: Former smoker Hx Alcohol Use: No Hx Substance Use: No Preferred Language: Hungarian Communication Ability: Effective Visual Impairment: No Limitations Hearing Ability: Normal Stage Set Designer Required: No Beliefs That Will Affect Care: None Current Living Situation: Family current occupation: Retired Feels Safe at Home: Yes Assistive Devices: Cane Review of Systems Review of Systems: All systems reviewed & are unremarkable except as noted in HPI & below Physical Exam Physical Exam: General: no acute distress, chronic ill appearing elderly female, WDWN Head: normocephalic, atraumatic Eyes: conjunctiva non-injected, anicteric ENT: normal inspection external ears, nose, mucous membranes moist Neck: supple, trachea midline Lungs: clear, no respiratory distress, no wheezing/rhonchi/rales CV: RRR, no pretibial edema Abd: normal BS, soft, non-tender Ext: no cyanosis, no calf tenderness Neuro: Alert, oriented to person, place, month, year, no focal deficits noted, normal affect Skin: warm, dry Results & Data Results & Data Vital Signs (Past 12 Hours) Vital Signs Temp Pulse Pulse Resp BP BP Pulse Ox 11/18/24 15:28 81 26 H 174/84 H 95 11/18/24 15:27 94 11/18/24 15:02 83 11/18/24 14:49 36.7 C 81 14 123/62 98 O2 Del Method 11/18/24 15:28 Room Air 11/18/24 15:27 Room Air 11/18/24 15:02 11/18/24 14:49 Room Air Laboratory Results Short CBC 11/18/24 Range/Units 15:04 WBC 6.23 (4.8-10.8) K/ul Hgb 7.9 L (12.0-16.0) g/dl Hct 24.5 L (37.0-47.0) % Plt Count (130-400) K/uL BMP 11/18/24 15:04 Sodium 134 L Potassium 4.7 Chloride 104 Carbon Dioxide 20 L BUN 27 H Creatinine 1.25 H Glucose 117 H Calcium 9.0 Liver Function 11/18/24 Range/Units 15:04 Total Bilirubin 0.7 (0.2-1.0) mg/dl Direct Bilirubin 0.1 (0-0.2) mg/dl AST 16 (13-39) U/L ALT 8 (7-52) U/L Alkaline Phosphatase 93 (34-104) U/L Albumin 4.1 (3.4-5.0) gm/dl Urine 11/18/24 Range/Units 16:13 Urine Color Yellow Urine Appearance Clear (Clear) Urine pH 5.5 (4.5-7.5) Ur Specific [place] 1.021 (1.000-1.030) Urine Protein 1+ H (Negative) Urine Glucose (UA) Negative (Negative) Diagnostic Findings Chest X-Ray 11/18/24 15:00 XR chest 1V portable CLINICAL HISTORY: Sepsis COMPARISON STUDY: 07/09/2024 FINDINGS: There is stable moderate cardiomegaly without pulmonary vascular congestion. No consolidation or pleural effusion. No pneumothorax. IMPRESSION: No acute findings. ACT 112: Negative or not required by law. Electronically signed by: Andre Brown M.D. 11/18/2024 3:[address] 11/18/24 15:00 CT head/brain wo con CLINICAL HISTORY: weakness. TECHNIQUE: Multiple axial CT images of the head were obtained without contrast. A dose lowering technique was utilized adhering to the principles of ALARA. CT DOSE: 547.75 mGy.cm COMPARISON: 07/09/2024 FINDINGS: No intracranial hemorrhage seen. No mass effect, midline shift, or h ydrocephalus. There are stable mild chronic small vessel ischemic changes. Visualized paranasal sinuses and mastoid air cells are clear. No skull fracture seen. IMPRESSION: No acute findings. ACT 112: Negative or not required by law. The above report was generated using voice recognition software. It may contain grammatical, syntax or spelling errors. Electronically signed by: Andre Brown M.D. 11/18/2024 3:38 PM Supervising Physician Co-Signing Physician Notes Patient seen and examined at bedside. Patient states she feels weak and "bad all over." Denies nausea, vomiting, diarrhea, constipation, burning with urination, SOB, any other localizing symptom. Weakness/fatigue worsening over past few weeks to months. On exam, no pitting edema, RRR, no tenderness to palpation of abdomen. Hgb, WBC at baseline. Elevated Metamyelocytes consistent with known CML. Creatinine at baseline. Troponin appears around patient baseline. Elevated procal nonspecific in setting of known CML. Patient with CML presenting with progressive weakness, fatigue and not feeling well. No localizing symptoms to suggest infection, imaging unremarkable. Has been getting anemia injections and iron transfusions which could be contributers to this fatigue and weakness. Weakness/fatigue likely multifactorial in setting of CML, deconditioning. -check phos, TSH, CK, viral panels, iron studies, B12, folic acid to finish metabolic workup -check echo in setting of chronic fatigue and CML, elevated troponin -check peripheral smear, LDH, uric acid, PT/INR to r/o blast crisis -PT/OT I have seen and discussed the case with the collaborating advanced practitioner. I agree with the above H&P. I have reviewed and confirmed the patients medical history, the findings on physical examination, and the patients diagnosis and treatment plan with Brittny Manjarrez PA-C and agree with the information documented. I spent a total of 40 minutes coordinating, documenting, and providing care for this patient excluding time spent in the performance of separately billed services. All of the aforementioned completed outside of collaborating with the assigned advanced practitioner for a full treatment plan. I have reviewed the advanced practitioner's documentation, and I agree with, and take responsibility for the plan of care
[2024-11-18 16:29] LABS: Chlamydia pneumoniae PCR Not Detected (NotDetected); Coronavirus 229E PCR Not Detected (NotDetected); Coronavirus CoV-2 (COVID19)PCR Not Detected (NotDetected); Coronavirus HKU1 PCR Not Detected (NotDetected); Coronavirus NL63 PCR Not Detected (NotDetected); Coronavirus OC43PCR Not Detected (NotDetected); Human Metapneumovirus PCR Not Detected (NotDetected); Parainfluenza Virus 1 PCR Not Detected (NotDetected); Parainfluenza Virus 2 PCR Not Detected (NotDetected); Parainfluenza Virus 3 PCR Not Detected (NotDetected); Parainfluenza Virus 4 PCR Not Detected (NotDetected); Respiratory Syncytial VirusPCR Not Detected (NotDetected); Rhinovirus/Enterovirus PCR Not Detected (NotDetected)
[2024-11-18 16:35] LABS: Appearance Urine Clear (Clear); Bacteria Urine Automated None Seen (None Seen); Cast Urine Automated 0-2 /lpf (0-2); Epithelial Cell Urine Auto 0-2 /hpf (0-2); Glucose Urine UA Negative (Negative); RBC Urine Automated 0-2 /hpf (0-2); WBC Urine Automated 21-50 /hpf (0-5)
[2024-11-18 16:37] LABS: ALC (manual) 1.50 K/uL (1.2-3.4); ANC (manual) 3.86 K/uL (1.4-6.5); Microcytosis Present; Polychromasia 1+; Tear Drop Cells 2+; White Blood Count 6.23 K/ul (4.8-10.8)
[2024-11-18 17:11] LABS: INR 1.1 (0.9-1.1); Partial Thromboplastin Time 31 Seconds (21-31); Prothrombin Time 11.8 Seconds (9.0-12.0)
[2024-11-18 17:34] LABS: Creatine Kinase 15.0 U/L (26-192); Iron 584.0 mcg/dl (35-150); Total Iron Binding Cap Calc 290.0 mcg/dl (250-450); Transferrin 207.0 mg/dl (200-360); Transferrin (FE) Percent Satur 201.0 % (15-50); Uric Acid 9.5 mg/dl (2.6-7.2)
[2024-11-18 17:51] LABS: Thyroid Stimulating Hormone 3.331 uIu/ml (0.300-4.500)
[2024-11-18] MEDS: LORazepam 0.5 MG TAB PO STA (19:10)
[2024-11-18] MEDS: MAGNESIUM SULFATE / D5W 1 GM/100 ML BAG IV SCH (19:11)
[2024-11-18] MEDS ORDERED: GLUCAGON FOR INJ 1 MG VIAL SQ PRN (19:50)
[2024-11-18] MEDS ORDERED: ONDANSETRON INJ 2 MG/ML 2 ML VIAL IV PRN (19:50)
[2024-11-18] MEDS ORDERED: GLUCOSE 40% GEL 15 GM TUBE PO PRN (19:50)
[2024-11-18] MEDS ORDERED: GLUCOSE 10 TAB/TUBE PO PRN (19:50)
[2024-11-18] MEDS ORDERED: DEXTROSE 50% 50 ML SYRINGE IV PRN (19:50)
[2024-11-18] MEDS ORDERED: MAGNESIUM HYDROXIDE SUSP 30 ML UDC PO PRN (19:50)
[2024-11-18] MEDS ORDERED: CARBOHYDRATES FOR HYPOGLYCEMIA PO PRN (19:50)
[2024-11-18] MEDS ORDERED: POLYETHYLENE (MIRALAX) 17 GM PACK PO PRN (19:50)
[2024-11-18] MEDS: INSULIN ASPART PER UNIT CHARGE SC SCH (21:48)
[2024-11-18] MEDS: ACETAMINOPHEN 325 MG TAB PO PRN (21:56)
[2024-11-18] MEDS: MAGNESIUM SULFATE / D5W 1 GM/100 ML BAG IV ONE (23:29)
[2024-11-19] MEDS: LEVOTHYROXINE SODIUM 75 MCG TABLET PO SCH (05:43)
[2024-11-19 08:08] LABS: Alanine Aminotransferase 7.0 U/L (7-52); Albumin Globulin Ratio 1.6 (0.9-2); Alkaline Phosphatase 93.0 U/L (34-104); Anion Gap 8.0 (3-11); Bilirubin,Total 0.9 mg/dl (0.2-1.0); Blood Urea Nitrogen 20.0 mg/dl (6-23); Calcium 9.2 mg/dl (8.6-10.3); Carbon Dioxide 22.0 mmol/L (21-32); Chloride 104.0 mmol/L (98-107); Creatinine Clr Calc Pharmacy 28.8 ml/min; Globulin 2.6 gm/dl (2.5-4.0); Glucose 124.0 mg/dl (70-99(Fasting)); Magnesium 2.2 mg/dl (1.7-2.4); Potassium 4.5 mmol/L (3.5-5.1); Sodium 134.0 mmol/L (136-145); Total Protein 6.8 gm/dl (6.0-8.3)
[2024-11-19 08:10] LABS: INR 1.1 (0.9-1.1); Prothrombin Time 11.4 Seconds (9.0-12.0)
[2024-11-19 08:12] LABS: Hematocrit (blood only) 23.8 % (37.0-47.0); Hemoglobin 7.8 g/dl (12.0-16.0); Mean Corpuscular Hemoglobin 23.4 pg (25.0-34.0); Mean Corpuscular Volume 71.5 fL (80.0-100.0); RDW Standard Deviation 50.5 fL (36.4-46.3); Red Blood Count 3.33 M/uL (4.20-5.40); White Blood Count 5.87 K/ul (4.8-10.8)
[2024-11-19 08:13] LABS: ALC (manual) 1.00 K/uL (1.2-3.4); ANC (manual) 3.46 K/uL (1.4-6.5); Blast # (manual) 0.12 K/uL (0-0); Microcytosis Present; Polychromasia 1+; Tear Drop Cells 2+
[2024-11-19] MEDS: CHOLECALCIFEROL 25 MCG (1000 UNITS) TAB PO SCH (08:15)
[2024-11-19] MEDS: LOSARTAN POTASSIUM 25 MG TAB PO SCH (08:15)
[2024-11-19] MEDS: ATENOLOL 25 MG TABLET PO SCH (08:15)
[2024-11-19] MEDS: FOLIC ACID 1 MG TAB PO SCH (08:15)
--- NOTE | 2024-11-19 10:44 | Hospitalist Progress Note ---
Date of Service November 19, 2024 Assessment & Plan (1) Generalized weakness: Plan: Patient is 89-year-old female with PMH HTN, dyslipidemia, PAF, paroxysmal supraventricular tachycardia, CAD, h/o nonischemic cardiomyopathy, CKD III, PMR, DM II, hypothyroidism, primary myelofibrosis with monocytosis presented to ER with c/o ongoing generalized weakness and fatigue. Denies F/C, N/V/D, urinary symptoms CXR: No acute infiltrate CT Head: no acute intracranial findings UA: 2+leuk esterase, 21-50 WBC, No bacteria. Negative respiratory biofire panel Urine culture pending Blood culture pending May be secondary to underlying progressive cancer. R/O underlying infection Fall precautions PT/OT eval #Primary myelofibrosis with monocytosis Follows with oncology, Dr Marx who per 11/03/24 outpatient note suggested that CA is progressing in absence of HMA therapy and recommends continuing Vidaza. Started EPO agents with severe anemia. Transfuse if hemoglobin less than 8 and platelet count less than 30,000. Patient Received IV iron today 11/18/24 outpatient Received epoetin on 11/17/24 vitamin b12 wnl #Hypomagnesemia- repleted #Elevated troponin Demand Ishcemia Denies CP/SOB Troponin: 54 on admission with flat trend Sinus rhythm, rate 72, No ST elevation, no significant change in compared to EKG 07/09/24 #CKD III Cr: 1.25. Baseline Cr: ~1.2 Monitor renal functions, avoid nephrotoxic agents when possible #DM II A1c: 6.0 on 08/25/24 Hold metformin, glipizide #PAF Not on anticoagulation Current sinus rhythm Continue atenolol #CAD #HTN Continue atenolol, losartan #Hypothyroidism Continue levothyroxine #Anxiety On lorazapam. Pt reports uses at least once a day DVT Prophylaxis SCDs for now DNR/DNI Time spent evaluating patient, direct bedside care, chart review, placing orders, interpretation of diagnostic studies, discussion with consultants, patient, and family members, as well as other required patient management activities is 50 minutes Please note the above document was generated using voice recognition software. It may contain grammatical, syntax or spelling errors. Any formal questions or concerns about the content, text or information contained within the body of this dictation should be directly addressed to the provider for clarification Admission and Anticipated Discharge Date Admission Date: November 18, 2024 Subjective Patient seen and examined at bedside. She reports that she is tired and did not get much sleep overnight She denies any pain. Reports that she feels weak overall. No significant events overnight Review of Systems Review of Systems: All systems reviewed & are unremarkable except as noted in Subjective Physical Exam Physical Exam: General: no acute distress, chronic ill appearing elderly female, WDWN Lungs: clear, no respiratory distress, no wheezing/rhonchi/rales CV: RRR, no pretibial edema Abd: normal BS, soft, non-tender Ext: no cyanosis, no calf tenderness Neuro: Alert, oriented to person, place, month, year, no focal deficits noted, normal affect Skin: warm, dry Results & Data Results & Data Vital Signs (Past 12 Hours) Vital Signs Temp Pulse Pulse Resp BP BP Pulse Ox 11/19/24 07:58 36.5 C 73 20 176/47 H 96 11/19/24 06:45 64 11/19/24 03:42 36.8 C 58 L 18 150/66 H 98 O2 Del Method 11/19/24 07:58 Room Air 11/19/24 06:45 11/19/24 03:42 Room Air
--- NOTE | 2024-11-19 10:49 | Electrocardiogram Report ---
Test Reason : Blood Pressure : */* mmHG Vent. Rate : 72 BPM Atrial Rate : 72 BPM P-R Int : 196 ms QRS Dur : 88 ms QT Int : 406 ms P-R-T Axes : 56 -25 38 degrees QTcB Int : 444 ms Sinus rhythm Premature atrial complexes Poor R wave progression, consider anterior ND vs. lead placement vs. LVH Abnormal ECG When compared with ECG of 09-Jul-2024 19:57, No significant change was found Confirmed by Ezra Hackett ([id number]) on 11/19/2024 10:48:27 AM Referred By: REFERRED SELF Confirmed By: Ezra Hackett
[2024-11-19] MEDS: LORazepam 0.5 MG TAB PO PRN (11:21)
[2024-11-20 06:37] LABS: Alanine Aminotransferase 6.0 U/L (7-52); Albumin Globulin Ratio 1.7 (0.9-2); Alkaline Phosphatase 88.0 U/L (34-104); Anion Gap 9.0 (3-11); Bilirubin,Total 1.0 mg/dl (0.2-1.0); Blood Urea Nitrogen 23.0 mg/dl (6-23); Calcium 8.9 mg/dl (8.6-10.3); Carbon Dioxide 20.0 mmol/L (21-32); Chloride 104.0 mmol/L (98-107); Creatinine Clr Calc Pharmacy 25.6 ml/min; Globulin 2.4 gm/dl (2.5-4.0); Glucose 138.0 mg/dl (70-99(Fasting)); Potassium 4.1 mmol/L (3.5-5.1); Sodium 133.0 mmol/L (136-145); Total Protein 6.5 gm/dl (6.0-8.3)
[2024-11-20 06:46] LABS: Hematocrit (blood only) 22.8 % (37.0-47.0); Hemoglobin 7.3 g/dl (12.0-16.0); Mean Corpuscular Hemoglobin 22.9 pg (25.0-34.0); Mean Corpuscular Volume 71.5 fL (80.0-100.0); RDW Standard Deviation 50.5 fL (36.4-46.3); Red Blood Count 3.19 M/uL (4.20-5.40); White Blood Count 4.62 K/ul (4.8-10.8)
[2024-11-20 07:54] VITALS: BP 178/74; PULSE 64; RESP 20; TEMP 97.7; O2SAT 97
--- NOTE | 2024-11-20 10:32 | Discharge Summary ---
Date of Service November 20, 2024 Admission HPI Per Admitting Provider Patient is 89-year-old female with PMH HTN, dyslipidemia, PAF, paroxysmal supraventricular tachycardia, CAD, h/o nonischemic cardiomyopathy, CKD III, PMR, DM II, hypothyroidism, primary myelofibrosis with monocytosis presented to ER with c/o ongoing generalized weakness and fatigue. History obtained from chart review and patient's son. Patient reports for nearly two months having generalized weakness and fatigue. Reports sleeping most of the time. Follows with Dr Marx, oncology. States appetite fair. Reports doesn't drink much water. Reports dry intermittent cough and rhinorrhea for "many" months and denies any worsening. Lives at home alone. Uses walker to ambulate. Denies falls. Son reports had IV iron today. States on 11/17/24 had epoetin. Son thinks had PRBC transfusion 2 weeks ago. Reports last BM yesterday. Denies fever/chills, diaphoresis, N/V/D, melena, hematochezia, RYAN, dizziness, syncope, vision changes, neck pain, CP, SOB, palpitations, sore throat, otalgia, abdominal pain, paresthesias, extremity edema, rashes, urinary symptoms. Per outpatient chart review [facility], Dr. 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 Her cancer is progressing in absence of HMA therapy. Continue Vidaza. Proceed with treatment. Check CBC every 2 week. Transfuse if hemoglobin less than 8 and platelet count less than 30,000. Will transfuse 1 unit PRBC Start on EPO agents because of severe anemia Give 1 cycle IV iron along with EPO Admission Exam Per Admitting Provider General: no acute distress, chronic ill appearing elderly female, WDWN Head: normocephalic, atraumatic Eyes: conjunctiva non-injected, anicteric ENT: normal inspection external ears, nose, mucous membranes moist Neck: supple, trachea midline Lungs: clear, no respiratory distress, no wheezing/rhonchi/rales CV: RRR, no pretibial edema Abd: normal BS, soft, non-tender Ext: no cyanosis, no calf tenderness Neuro: Alert, oriented to person, place, month, year, no focal deficits noted, normal affect Skin: warm, dry Principal Diagnosis Generalized weakness Discharge Exam General: no acute distress, chronic ill appearing elderly female, WDWN Lungs: clear, no respiratory distress, no wheezing/rhonchi/rales CV: RRR, no pretibial edema Abd: normal BS, soft, non-tender Ext: no cyanosis, no calf tenderness Neuro: Alert, oriented to person, place, month, year, no focal deficits noted, normal affect Skin: warm, dry Discharge Data Allergies Allergy/AdvReac Type Severity Reaction Status Date / Time ibuprofen Allergy Intermediate tongue Verified 10/07/24 08:53 swelling latex Allergy Intermediate rash Verified 10/07/24 08:53 lisinopril Allergy Mild HIVES Verified 10/07/24 08:53 metoprolol Allergy Mild HIVES Verified 10/07/24 08:53 Penicillins Allergy Mild HIVES Verified 10/07/24 08:53 Sulfa (Sulfonamide Allergy Mild NAUSEA AND Verified 10/07/24 08:53 Antibiotics) VOMITING Consultations 11/18/24 16:04 ED Decision to Admit Stat Ordered Studies 11/18/24 15:00 CT head/brain wo con Stat Hospital Course (1) Generalized weakness: Patient is 89-year-old female with PMH HTN, dyslipidemia, PAF, paroxysmal supraventricular tachycardia, CAD, h/o nonischemic cardiomyopathy, CKD III, PMR, DM II, hypothyroidism, primary myelofibrosis with monocytosis presented to ER with c/o ongoing generalized weakness and fatigue. Denies F/C, N/V/D, urinary symptoms CXR: No acute infiltrate CT Head: no acute intracranial findings UA: 2+leuk esterase, 21-50 WBC, No bacteria. Negative respiratory biofire panel Blood culture neg During the hospitalization, patient was admitted to medical floor. Infectious workup including chest x-ray, urine and blood culture were negative for infection. Patient underwent PT OT evaluation. She reported that she felt she is at her baseline functional status and reported that the generalized weakness resolved at the time of the discharge. #Primary myelofibrosis with monocytosis Follows with oncology, Dr Marx who per 7/29/25 outpatient note suggested that CA is progressing in absence of HMA therapy and recommends continuing Vidaza. Started EPO agents with severe anemia. Patient Received IV iron 11/18/24 outpatient Received epoetin on 11/17/24 vitamin b12 wnl Follow-up with oncology as outpatient Please note the above document was generated using voice recognition software. It may contain grammatical, syntax or spelling errors. Any formal questions or concerns about the content, text or information contained within the body of this dictation should be directly addressed to the provider for clarification Total Time Total Time Spent Total Time Spent (In Minutes): 45 Total Time Includes: Examination of the Patient, Discharge Planning, Medication Reconciliation, Communication With Other Providers and Other Discharge Plan Discharge Items Patient Disposition: Home - Self-Care Reason For Visit: WEAKNESS Discharge Diagnosis: Generalized weakness Anemia Condition on Discharge: Fair Activity: Resume your previous activity Non-emergency contact: Primary Care Provider Call non-emergency contact if: you have any medication questions and your symptoms worsen Follow-up/Referrals: Ayan Trinh MD [Primary Care Provider] - Diet: Regular Addtl Attending Provider Instructions: You were admitted to the hospital due to generalized weakness. You underwent evaluation here for infection which was negative. Please follow-up with your primary care doctor and blood doctor. Pending Studies at Discharge: No Stand-Alone Forms: My [facility] [employer], Smoking Cessation Medications and DC Order Prescriptions: Continued metformin 500 mg Tablet 500 mg PO BIDM levothyroxine 75 mcg Tablet 75 mcg PO DAILYBB lorazepam 0.5 mg Tablet 0.5 - 1 mg PO Q8 PRN (Reason: Anxiety) losartan 25 mg Tablet 25 mg PO QAM atenolol 25 mg tablet 25 mg PO QAM cholecalciferol (vitamin D3) 1,000 unit Tablet 1,000 unit PO DAILY coenzyme Q10 50 mg Capsule 50 mg PO DAILY biotin 2,500 mcg Capsule 2,500 mcg PO DAILY cetirizine [Zyrtec] 10 mg Tablet 5 mg PO QAM PRN (Reason: Allergy Symptoms) pantoprazole 40 mg tablet,delayed release (DR/EC) 40 mg PO DAILY acetaminophen [Tylenol Arthritis Pain] 650 mg Tablet Extended Release 1,300 mg PO DAILY PRN (Reason: Pain) glipizide 2.5 mg tablet extended release 24hr 2.5 mg PO QAM Discharge Orders: Discharge Order (Routine); Ordered 11/20/24 Ordered By: Jass Polo Admission Data Admit Date/Time: 11/18/24 16:33 Attending Provider: Jass Polo Admit Provider: Jersey Alvarez Primary Care Provider: Ayan Trinh Other Providers: Jersey Alvarez
--- NOTE | 2024-11-20 15:10 | Electrocardiogram Report ---
Test Reason : Blood Pressure : */* mmHG Vent. Rate : 62 BPM Atrial Rate : * BPM P-R Int : * ms QRS Dur : 94 ms QT Int : 426 ms P-R-T Axes : * -24 52 degrees QTcB Int : 432 ms Normal sinus rhythm with intermittent 2:1 AV conduction Abnormal ECG When compared with ECG of 18-Nov-2024 15:12, Significant changes have occurred Confirmed by Ezra Hackett ([id number]) on 11/20/2024 3:09:55 PM Referred By: REFERRED SELF Confirmed By: Ezra Hackett
== END 2024-11-20 11:40 | disposition home or self-care (01) | DRG 841 ==
LOC: ED 14:46 → EDINP 16:33 → SUATTDRO 16:33 → 2N 21:30